=== PATIENT | female | born 1935 | race Hispanic/Latino ===

== ENCOUNTER 2016-10-06 14:26 | Inpatient (IN) | payer MEDICARE, OTHER ==
--- NOTE | 2016-10-06 16:12 | CP.PCM.CON ---
History of Present Illness - History of Present Illness History of Present Illness: Surgery: Dr. Polk CC: rectal prolapse HPI: Patient is a 80 y/o female who presents complaining of her rectum prolapsing every day for the past month. She states with every bowel movement she notices her rectum prolapsing. Patient reports spontaneous reduction of prolapse. She reports significant pain when the rectum prolapses and pain resolves once prolapse reduces. She reports tolerating diet at home but appetite has been poor. She denies blood in stool. She states her last colonoscopy was in 2009 which was patient reported as normal. PMH: Gout, HTN, osteoporosis, arthritis, bronchitis PSH: uterine sling for prolapse, colonoscopy NKDA Review of Systems - Review of Systems All systems: reviewed and no additional remarkable complaints except Review of Systems: unless stated in HPI Past Patient History - Past Social History Smoking Status: Former Smoker - PSYCHIATRIC Hx Substance Use: No Meds Allergies/Adverse Reactions: Allergies Allergy/AdvReac Type Severity Reaction Status Date / Time No Known Allergies Allergy Verified 10/06/16 15:51 Physical Exam - Constitutional Appears: Non-toxic, No Acute Distress - Head Exam Head Exam: ATRAUMATIC, NORMOCEPHALIC - Eye Exam Eye Exam: EOMI, Normal appearance - ENT Exam ENT Exam: Mucous Membranes Moist - Respiratory Exam Respiratory Exam: NORMAL BREATHING PATTERN. absent: Respiratory Distress - Cardiovascular Exam Cardiovascular Exam: REGULAR RHYTHM. absent: Tachycardia - GI/Abdominal Exam GI & Abdominal Exam: Soft. absent: Distended, Guarding, Rebound, Rigid, Tenderness - Rectal Exam Rectal Exam: Hemorrhoids Additional comments: rectal tags, rectum currently reduced. mucoid discharge from anus - Extremities Exam Extremities exam: Positive for: normal inspection - Neurological Exam Neurological exam: Alert, Oriented x3 - Psychiatric Exam Psychiatric exam: Normal Affect, Normal Mood - Skin Skin Exam: Dry, Intact, Normal Color, Warm Results - Vital Signs Recent Vital Signs: Last Vital Signs Temp 97.9 F 10/06/16 14:30 Pulse 94 H 10/06/16 14:30 Resp 20 10/06/16 14:30 BP 117/79 10/06/16 14:30 Pulse Ox 94 L 10/06/16 14:30 Assessment & Plan - Assessment and Plan (Free Text) Assessment: 80 y/o female w/ rectal prolapse, recurrent Plan: -CT abd pelvis w/ po and IV contrast -tentatively plan for OR later this week -needs medical and cardiac clearance -needs GI evaluation, Dr. Davis is GI doctor -ok for diet from surgical standpoint until OR date determined -daily labs -further management per primary team -d/w Dr. Felicitas Ignacio PGY1 - Date & Time Date: 10/06/16 Time: 16:17
[2016-10-06] MEDS ORDERED: Iohexol 240 (50 ml) ONE (16:17)
[2016-10-06 16:18] LABS: BASO # 0.2 K/uL (0.0-0.2); BASO % 1.3 % (0.0-2.0); EOS # 0.4 K/uL (0.0-0.7); EOS % 3.4 % (0.0-4.0); HEMATOCRIT 38.3 % (34.0-47.0); LYMPH # 2.4 K/uL (1.0-4.3); LYMPH % 21.5 % (20.0-40.0); MEAN CELL VOLUME 88.4 fL (81.0-99.0); MEAN CORPUSCULAR HEMOGLOBIN 29.6 pg (27.0-31.0); MEAN CORPUSCULAR HGB CONC 33.5 g/dL (33.0-37.0); MEAN PLATELET VOLUME 6.4 fL (7.2-11.7); MONO # 0.9 K/uL (0.0-0.8); MONO % 7.6 % (0.0-10.0); NRBC % 0.1 % (0.0-2.0); RED CELL DISTRIBUTION WIDTH 13.8 % (11.5-14.5); WHITE BLOOD COUNT 11.3 K/uL (4.8-10.8)
[2016-10-06 16:28] LABS: POTASSIUM 4.1 mmol/L (3.6-5.2)
[2016-10-06 16:30] LABS: BILIRUBIN,TOTAL 0.2 mg/dL (0.2-1.3)
[2016-10-06 16:31] LABS: ALB/GLOB RATIO 1.2 (1.0-2.1); CALCIUM 9.3 mg/dl (8.6-10.4); TOTAL PROTEIN 7.1 g/dL (6.3-8.3)
[2016-10-06 16:43] LABS: TROPONIN I 0.027 ng/mL (0.00-0.120)
--- NOTE | 2016-10-06 17:07 | C.PDOC ---
History Of Present Illness 80 y/o female referred to ED by Devan for evaluation of rectal prolapse; intermittent spontaneously reducing rectal prolapse. Pt denies abdominal pain, fever, chills, vomiting, diarrhea or any other complaints. Time Seen by Provider: 10/06/16 15:40 Chief Complaint (Nursing): Abdominal Pain History Per: Patient History/Exam Limitations: no limitations Onset/Duration Of Symptoms: Days Current Symptoms Are (Timing): Still Present Severity: Mild Reports Recently: Treated By A Physician Recent travel outside of the [place]: No Past Medical History Reviewed: Historical Data, Nursing Documentation, Vital Signs Vital Signs: Last Vital Signs Temp 98.1 F 10/06/16 17:51 Pulse 78 10/06/16 17:51 Resp 18 10/06/16 17:51 BP 132/78 10/06/16 17:51 Pulse Ox 96 10/06/16 17:51 Family History: States: Unknown Family Hx - Social History Hx Alcohol Use: No Hx Substance Use: No - Immunization History Hx Tetanus Toxoid Vaccination: No Hx Influenza Vaccination: No Hx Pneumococcal Vaccination: No Review Of Systems Except As Marked, All Systems Reviewed And Found Negative. Constitutional: Negative for: Fever Gastrointestinal: Negative for: Vomiting, Abdominal Pain, Diarrhea Physical Exam - Physical Exam Appears: Non-toxic, No Acute Distress Skin: Warm, Dry, No Rash Head: Atraumatic, Normacephalic Chest: Symmetrical Cardiovascular: Rhythm Regular, No Murmur Respiratory: Normal Breath Sounds, No Rales, No Rhonchi, No Wheezing Gastrointestinal/Abdominal: Soft, No Tenderness Rectal: Other (>6 cm rectal prolapse) Extremity: Bilateral: Atraumatic Neurological/Psych: Oriented x3, Normal Speech ED Course And Treatment - Laboratory Results Result Diagrams: 10/06/16 16:14 10/06/16 16:14 Lab Interpretation: Normal (bnp/trop neg.) ECG: Interpreted By Dc ECG Rhythm: Sinus Rhythm ECG Interpretation: Normal Rate From EC O2 Sat by Pulse Oximetry: 94 - Radiology CXR: Interpreted by Dc CXR Interpretation: Yes: No Acute Disease Reevaluation Time: 17:23 Reassessment Condition: Unchanged - Physician Consult Information Outcome Of Conversation: 1600: d/w Surgical team for Dr. Magalis ogden to admit. will perform CT Abd/pelvis with PO/IV contrast while pt on Medicine Floor. 1700: d/w Dr. Fitzgerald- [facility] covering Dr. Yessica Ferris's patients'- ok to admit. pending GI consult with Dr Jack Pablo. Medical Decision Making Medical Decision Making: EKG, CXR, labs 1730: rectal prolapse, pending surgical correction and CT Abd/pelvis. Disposition Doctor Will See Patient In The: Hospital Counseled Patient/Family Regarding: Studies Performed, Diagnosis - Disposition Disposition: HOSPITALIZED Disposition Time: 17:25 Condition: GOOD - Clinical Impression Clinical Impression: Rectal prolapse - Scribe Statement The provider has reviewed the documentation as recorded by the Elvie Fang Provider Attestation: All medical record entries made by the Elvie were at my direction and personally dictated by me. I have reviewed the chart and agree that the record accurately reflects my personal performance of the history, physical exam, medical decision making, and the department course for this patient. I have also personally directed, reviewed, and agree with the discharge instructions and disposition.
--- NOTE | 2016-10-06 17:39 | RAD ---
PROCEDURE: CHEST RADIOGRAPH, 1 VIEW HISTORY: SOB COMPARISON: None available. FINDINGS: LUNGS: Clear. PLEURA: No pneumothorax or pleural fluid seen. CARDIOVASCULAR: No radiographic findings to suggest acute or significant cardiovascular disease. OSSEOUS STRUCTURES: No significant abnormalities. VISUALIZED UPPER ABDOMEN: Normal. OTHER FINDINGS: Prominent skin fold. However there are markings beyond the skin folds on the left. If pneumothorax is suspected given the findings and clinical presentation repeat chest x-ray is advised. IMPRESSION: Probably no active disease. Prominent skin fold with pulmonary markings beyond this left lung.
--- NOTE | 2016-10-06 18:10 | CP.PCM.HP ---
<Sourav Link - Last Filed: 10/06/16 17:57> History of Present Illness - History of Present Illness History of Present Illness: This is a 80 yo F with PMH significant for HTN, gout, osteoporosis and arthritis that presented to the ED with a chief complaint of rectal prolapse. Pt states that this started about 1 month and has gotten progressively worse. She states that is is associated with pain. She also reports that it prolapses with a BM and will reduce spontaneously as she goes about her day. She is not aware of any exacerbating factors or what lead to the prolapse. Pt denies constipation, fevers, chills, chest pain, sob, nausea or vomiting. She also denies blood in her stool. Pt was seen by Dr Polk outpatient, who sent her in for surgical repair. PMD: Devan PMH: Gout, HTN, osteoporosis, arthritis, bronchitis PSH: uterine sling for prolapse, colonoscopy Allergies: NKDA FH: denies Sh: denies Tobacco, Etoh or drug use Present on Admission - Present on Admission Any Indicators Present on Admission: No Review of Systems - Constitutional Constitutional: absent: Chills, Fever - Cardiovascular Cardiovascular: absent: Chest Pain, Palpitations - Respiratory Respiratory: absent: Cough, Dyspnea - Gastrointestinal Gastrointestinal: absent: Abdominal Pain, Constipation, Diarrhea, Nausea, Vomiting Additional comments: Pt not currently prolapsed - Genitourinary Genitourinary: Urinary Frequency, Urinary Urgency - Musculoskeletal Musculoskeletal: absent: Muscle Weakness, Stiffness - Integumentary Integumentary: absent: Pruritus, Rash - Neurological Neurological: absent: Numbness, Tingling Past Patient History - Past Social History Smoking Status: Former Smoker - PSYCHIATRIC Hx Substance Use: No Meds Allergies/Adverse Reactions: Allergies Allergy/AdvReac Type Severity Reaction Status Date / Time No Known Allergies Allergy Verified 10/06/16 15:51 Physical Exam - Constitutional Appears: Well, Non-toxic, No Acute Distress - Head Exam Head Exam: ATRAUMATIC, NORMOCEPHALIC - Eye Exam Eye Exam: Normal appearance Pupil Exam: PERRL - ENT Exam ENT Exam: Mucous Membranes Moist - Respiratory Exam Respiratory Exam: Clear to Auscultation Bilateral, NORMAL BREATHING PATTERN - Cardiovascular Exam Cardiovascular Exam: +S1, +S2 - GI/Abdominal Exam GI & Abdominal Exam: Normal Bowel Sounds, Soft - Rectal Exam Rectal Exam: Hemorrhoids Additional comments: rectal tags, rectum currently reduced. mucoid discharge from anus - Extremities Exam Additional comments: Left upper extremity deformity - pt broke left wrist in 2013 - displaced - Neurological Exam Neurological exam: Alert, Oriented x3 - Skin Skin Exam: Dry, Warm Results - Vital Signs Recent Vital Signs: Last Vital Signs Temp 98.1 F 10/06/16 17:51 Pulse 78 10/06/16 17:51 Resp 18 10/06/16 17:51 BP 132/78 10/06/16 17:51 Pulse Ox 96 10/06/16 17:51 - Labs Result Diagrams: 10/06/16 16:14 10/06/16 16:14 Assessment & Plan - Assessment and Plan (Free Text) Assessment: Rectal prolapse - Currently reduced - Surgery consulted (Felicitas) - help appreciated -CT abd pelvis w/ po and IV contrast - f/u results -tentatively plan for OR later this week -needs medical and cardiac clearance -needs GI evaluation, Dr. Davis is GI doctor -ok for diet from surgical standpoint until OR date determined -daily labs Cardio consulted (Bella) - help appreciated - f/u recs GI consulted (Ryan) - help appreciaed - f/U recs Heart healthy diet Colace BID PRN Hx of HTN - restarted home meds - monitor and adjust as necessary Hx of Gout - restart home meds PPX - Lovenox - Pepcid <Yasir Fitzgerald H - Last Filed: 10/07/16 07:35> Results - Vital Signs Recent Vital Signs: Last Vital Signs Temp 98.5 F 10/07/16 00:14 Pulse 79 10/07/16 00:14 Resp 20 10/07/16 00:14 BP 142/84 10/07/16 00:14 Pulse Ox 94 L 10/07/16 00:14 - Labs Result Diagrams: 10/07/16 06:31 10/07/16 06:31 Labs: Laboratory Results - last 24 hr 10/07/16 06:31 WBC 10.1 RBC 4.80 Hgb 13.8 Hct 42.2 MCV 87.9 MCH 28.7 MCHC 32.7 L RDW 14.2 Plt Count 583 H MPV 6.8 L Neut % (Auto) 77.0 H Lymph % (Auto) 16.5 L Wright % (Auto) 3.7 Eos % (Auto) 2.6 Baso % (Auto) 0.2 Neut # 7.8 H Lymph # 1.7 Wright # 0.4 Eos # 0.3 Baso # 0.0 PT 10.9 INR 1.0 APTT 30 Sodium 134 Potassium 3.9 Chloride 94 L Carbon Dioxide 26 Anion Gap 18 BUN 22 H Creatinine 0.7 Est GFR ( Amer) > 60 Est GFR (Non-Af Amer) > 60 Random Glucose 101 Calcium 8.7 Total Bilirubin 0.8 AST 18 ALT 22 Alkaline Phosphatase 85 Total Protein 7.1 Albumin 3.8 Globulin 3.4 Albumin/Globulin Ratio 1.1 Carcinoembryonic Ag 1.3 CA 125 Antigen 14.6 Attending/Attestation - Attestation I have personally seen and examined this patient.: Yes I have fully participated in the care of the patient.: Yes I have reviewed all pertinent clinical information: Yes Notes (Text): Medical Attending: Patient was seen and examined by me. Agree with the above note by the resident. Patient was sent in by surgeon for repair of rectal prolasp. The patient explains this has been going on for quite some time now. From what I understand that it prolapses with a BM and will reduce spontaneously as she goes about her day. Needs EKG, CXRAY, PT, INR, and patient will need cardiology as well as GI evaluation. thank you Yasir Fitzgerald
[2016-10-06] MEDS ORDERED: Enoxaparin 40 mg Syringe ONE (18:29)
--- NOTE | 2016-10-06 18:31 | CT ---
PROCEDURE: CT Abdomen and Pelvis without intravenous contrast HISTORY: hx of rectal prolapse COMPARISON: None. TECHNIQUE: Oral contrast only. Radiation dose: Total exam DLP = 344.73 mGy-cm. This CT exam was performed using one or more of the following dose reduction techniques: Automated exposure control, adjustment of the mA and/or kV according to patient size, and/or use of iterative reconstruction technique. FINDINGS: LOWER THORAX: Unremarkable. LIVER: Unremarkable. No gross lesion or ductal dilatation. GALLBLADDER AND BILE DUCTS: Unremarkable. PANCREAS: Unremarkable. No gross lesion or ductal dilatation. SPLEEN: Unremarkable. ADRENALS: Unremarkable. No mass. KIDNEYS AND URETERS: Unremarkable. No hydronephrosis. No solid mass. Incidental finding(s): Simple cysts left kidney (2) the largest 6.5 cm. Adjacent smaller cyst 4.4 x 4.5 cm. VASCULATURE: Unremarkable. No aortic aneurysm. BOWEL: Thickening of the wall of the rectum likely proctitis. The findings do not extend to the sigmoid colon. No evidence of mechanical obstruction. There is a component of constipation. APPENDIX: Unremarkable. Normal appendix. PERITONEUM: Unremarkable. No free fluid. No free air. LYMPH NODES: Unremarkable. No enlarged lymph nodes. BLADDER: Unremarkable. REPRODUCTIVE: Unremarkable. BONES: Grade 1 anterolisthesis L5-S1. Loss of height L2 vertebral body and T12 vertebral body likely osteopenic/ old compression fractures. OTHER FINDINGS: None. IMPRESSION: Inflammatory changes, thickening of the wall of the rectum. Focal colitis/proctitis. No additional/ more proximal abnormalities in the sigmoid or descending colon. There is no evidence of mechanical obstruction. Prolapse is not appreciated on the current study.
[2016-10-06] MEDS: Enoxaparin 40 mg Syringe SC SCH (18:32)
[2016-10-07 06:42] LABS: BASO % 0.2 % (0.0-2.0); EOS # 0.3 K/uL (0.0-0.7); EOS % 2.6 % (0.0-4.0); HEMATOCRIT 42.2 % (34.0-47.0); LYMPH # 1.7 K/uL (1.0-4.3); LYMPH % 16.5 % (20.0-40.0); MEAN CELL VOLUME 87.9 fL (81.0-99.0); MEAN CORPUSCULAR HEMOGLOBIN 28.7 pg (27.0-31.0); MEAN CORPUSCULAR HGB CONC 32.7 g/dL (33.0-37.0); MEAN PLATELET VOLUME 6.8 fL (7.2-11.7); MONO # 0.4 K/uL (0.0-0.8); MONO % 3.7 % (0.0-10.0); RED CELL DISTRIBUTION WIDTH 14.2 % (11.5-14.5); WHITE BLOOD COUNT 10.1 K/uL (4.8-10.8)
[2016-10-07 06:58] LABS: CHLORIDE 94 mmol/L (98-107)
[2016-10-07 06:59] LABS: POTASSIUM 3.9 mmol/L (3.6-5.2); SODIUM 134 mmol/L (132-148)
[2016-10-07 07:01] LABS: ALB/GLOB RATIO 1.1 (1.0-2.1); AST/SGOT 18 U/L (14-36); BILIRUBIN,TOTAL 0.8 mg/dL (0.2-1.3); CARBON DIOXIDE 26 mmol/L (22-30); GFR AFRICAN-AMERICAN > 60; TOTAL PROTEIN 7.1 g/dL (6.3-8.3)
[2016-10-07 07:02] LABS: ALKALINE PHOSPHATASE 85 U/L (38-126); ALT/SGPT 22 U/L (9-52); BLOOD UREA NITROGEN 22 mg/dL (7-17); CALCIUM 8.7 mg/dl (8.6-10.4); GLUCOSE,RANDOM 101 mg/dL (65-105)
[2016-10-07 07:22] LABS: CARCINOEMBRYONIC ANTIGEN 1.3 ng/mL (0-3.0)
--- NOTE | 2016-10-07 07:58 | CP.PCM.CON ---
<Melquiades Barrera - Last Filed: 10/07/16 09:07> History of Present Illness - History of Present Illness History of Present Illness: Cardiology Note- Dr. Blanco' service Patient is a 80 year old female that was sent to the hospital by Dr. Mejia for surgical repair of a rectal prolapse. She says the prolapse occurs intermittently, then spontaneously resolves. At this time, she has no acute complaints, denies any chest pain, palpitations, dyspnea at rest or on exertion. Denies any cardiac history or family hx of cardiac disease. She says she is compliant with her medication. PMH: Gout, HTN, osteoporosis, arthritis PSH: uterine sling for prolapse, colonoscopy Allergies: NKDA FH: denies Sh: denies tobacco, Etoh or drug use Review of Systems - Constitutional Constitutional: absent: Anorexia, Weakness - Cardiovascular Cardiovascular: absent: Chest Pain, Chest Pain at Rest, Claudication, Irregular Heart Rhythm, Pedal Edema, Syncope - Respiratory Respiratory: absent: Cough, Dyspnea, Stridor, Chest Congestion - Gastrointestinal Gastrointestinal: absent: Abdominal Pain, Change in Stool Character, Dyspepsia, Early Satiety, Nausea - Genitourinary Genitourinary: absent: Dysuria, Flank Pain - Musculoskeletal Musculoskeletal: absent: Atrophy, Radiating Pain into Limb, Tingling - Endocrine Endocrine: absent: Fatigue, Palpitations Past Patient History - Past Medical History & Family History Past Medical History?: Yes - Past Social History Smoking Status: Never Smoked Chewing Tobacco Use: No Cigar Use: No Alcohol: None Drugs: Denies - MUSCULOSKELETAL/RHEUMATOLOGICAL Hx Falls: Yes Hx Fractures: Yes - PSYCHIATRIC Hx Substance Use: No - ANESTHESIA Hx Anesthesia: Yes Hx Anesthesia Reactions: No Meds Allergies/Adverse Reactions: Allergies Allergy/AdvReac Type Severity Reaction Status Date / Time No Known Allergies Allergy Verified 10/06/16 15:51 - Medications Medications: Current Medications Allopurinol (Zyloprim) 100 mg PO DAILY [facility] Amlodipine Besylate (Norvasc) 5 mg PO DAILY [facility] Bisacodyl (Dulcolax) 10 mg PO ONCE ONE Stop: 10/07/16 14:01 Docusate Sodium (Colace) 100 mg PO BID PRN PRN Reason: Constipation Enoxaparin Sodium (Lovenox) 40 mg SC DAILY [facility] Last Admin: 10/06/16 18:32 Dose: 40 mg Famotidine (Pepcid) 20 mg PO DAILY [facility] Last Admin: 10/06/16 18:32 Dose: 20 mg Hydrochlorothiazide (Microzide) 12.5 mg PO DAILY [facility] Losartan Potassium (Cozaar) 100 mg PO DAILY [facility] Pneumococcal Polyvalent Vaccine (Pneumovax 23 Vaccine) 0.5 ml IM .ONCE ONE Stop: 10/09/16 10:01 Polyethylene Glycol/Electrolytes (Golytely) 4,000 ml PO ONCE ONE Stop: 10/07/16 09:01 Physical Exam - Constitutional Appears: Non-toxic, No Acute Distress - Head Exam Head Exam: ATRAUMATIC, NORMAL INSPECTION, NORMOCEPHALIC - Eye Exam Pupil Exam: NORMAL ACCOMODATION, PERRL - ENT Exam ENT Exam: Mucous Membranes Moist - Respiratory Exam Respiratory Exam: Clear to Auscultation Bilateral, NORMAL BREATHING PATTERN. absent: Rales, Rhonchi, Wheezes - Cardiovascular Exam Cardiovascular Exam: REGULAR RHYTHM, +S1, +S2, Systolic Murmur - GI/Abdominal Exam GI & Abdominal Exam: Normal Bowel Sounds. absent: Distended, Firm, Hyperactive Bowel Sounds - Extremities Exam Extremities exam: Positive for: normal inspection. Negative for: pedal edema, tenderness - Neurological Exam Neurological exam: Alert, CN II-XII Intact, Reflexes Normal - Psychiatric Exam Psychiatric exam: Normal Affect - Skin Skin Exam: Dry, Intact, Normal Color, Warm Results - Vital Signs Recent Vital Signs: Last Vital Signs Temp 98.5 F 10/07/16 00:14 Pulse 79 10/07/16 00:14 Resp 20 10/07/16 00:14 BP 142/84 10/07/16 00:14 Pulse Ox 94 L 10/07/16 00:14 - Labs Result Diagrams: 10/07/16 06:31 10/07/16 06:31 Labs: Laboratory Results - last 24 hr 10/07/16 06:31 WBC 10.1 RBC 4.80 Hgb 13.8 Hct 42.2 MCV 87.9 MCH 28.7 MCHC 32.7 L RDW 14.2 Plt Count 583 H MPV 6.8 L Neut % (Auto) 77.0 H Lymph % (Auto) 16.5 L Davis % (Auto) 3.7 Eos % (Auto) 2.6 Baso % (Auto) 0.2 Neut # 7.8 H Lymph # 1.7 Davis # 0.4 Eos # 0.3 Baso # 0.0 PT 10.9 INR 1.0 APTT 30 Sodium 134 Potassium 3.9 Chloride 94 L Carbon Dioxide 26 Anion Gap 18 BUN 22 H Creatinine 0.7 Est GFR ( Amer) > 60 Est GFR (Non-Af Amer) > 60 Random Glucose 101 Calcium 8.7 Total Bilirubin 0.8 AST 18 ALT 22 Alkaline Phosphatase 85 Total Protein 7.1 Albumin 3.8 Globulin 3.4 Albumin/Globulin Ratio 1.1 Carcinoembryonic Ag 1.3 CA 125 Antigen 14.6 Assessment & Plan (1) Rectal prolapse Status: Acute Comment: EKG reviewed, shows normal sinus rhythm with minimum voltage criteria for LVH. Murmur auscultated on exam, will obtain echocardiogram. <Joanna Blanco - Last Filed: 10/07/16 09:25> Meds - Medications Medications: Current Medications Allopurinol (Zyloprim) 100 mg PO DAILY [facility] Amlodipine Besylate (Norvasc) 5 mg PO DAILY [facility] Bisacodyl (Dulcolax) 10 mg PO ONCE ONE Stop: 10/07/16 14:01 Docusate Sodium (Colace) 100 mg PO BID PRN PRN Reason: Constipation Enoxaparin Sodium (Lovenox) 40 mg SC DAILY [facility] Last Admin: 10/06/16 18:32 Dose: 40 mg Famotidine (Pepcid) 20 mg PO DAILY [facility] Last Admin: 10/06/16 18:32 Dose: 20 mg Hydrochlorothiazide (Microzide) 12.5 mg PO DAILY [facility] Losartan Potassium (Cozaar) 100 mg PO DAILY [facility] Pneumococcal Polyvalent Vaccine (Pneumovax 23 Vaccine) 0.5 ml IM .ONCE ONE Stop: 10/09/16 10:01 Results - Vital Signs Recent Vital Signs: Last Vital Signs Temp 98.7 F 10/07/16 08:00 Pulse 70 10/07/16 08:00 Resp 19 10/07/16 08:00 BP 143/92 H 10/07/16 08:00 Pulse Ox 97 10/07/16 08:00 - Labs Result Diagrams: 10/07/16 06:31 10/07/16 06:31 Labs: Laboratory Results - last 24 hr 10/07/16 06:31 WBC 10.1 RBC 4.80 Hgb 13.8 Hct 42.2 MCV 87.9 MCH 28.7 MCHC 32.7 L RDW 14.2 Plt Count 583 H MPV 6.8 L Neut % (Auto) 77.0 H Lymph % (Auto) 16.5 L Davis % (Auto) 3.7 Eos % (Auto) 2.6 Baso % (Auto) 0.2 Neut # 7.8 H Lymph # 1.7 Davis # 0.4 Eos # 0.3 Baso # 0.0 PT 10.9 INR 1.0 APTT 30 Sodium 134 Potassium 3.9 Chloride 94 L Carbon Dioxide 26 Anion Gap 18 BUN 22 H Creatinine 0.7 Est GFR ( Amer) > 60 Est GFR (Non-Af Amer) > 60 Random Glucose 101 Calcium 8.7 Total Bilirubin 0.8 AST 18 ALT 22 Alkaline Phosphatase 85 Total Protein 7.1 Albumin 3.8 Globulin 3.4 Albumin/Globulin Ratio 1.1 Carcinoembryonic Ag 1.3 CA 125 Antigen 14.6 Attending/Attestation - Attestation I have personally seen and examined this patient.: Yes I have fully participated in the care of the patient.: Yes I have reviewed all pertinent clinical information: Yes Notes (Text): 10/07/16 09:24 Pt with no ekg changes, no chest pain, no chf will obtain echo if nl ef pt may proceed with surgery rectal prolapse. I explaind in Japanese to pt as well answered all questions
[2016-10-07] MEDS ORDERED: Peg-Electrolyte Oral Soln 4L (Golytely) PO ONE (09:00)
--- NOTE | 2016-10-07 09:14 | CP.PCM.PN ---
Subjective - Date & Time of Evaluation Date of Evaluation: 10/07/16 Time of Evaluation: 07:10 - Subjective Subjective: Gen Surg: Dr. Polk Pt S&E this AM. Complaining of skin pruritus. Examination of skin revealed urticaria. Pt has no other complaints. +BM. Objective - Vital Signs/Intake and Output Vital Signs (last 24 hours): Temp Pulse Resp BP Pulse Ox 98.7 F 70 19 143/92 H 97 10/07/16 08:00 10/07/16 08:00 10/07/16 08:00 10/07/16 08:00 10/07/16 08:00 Intake and Output: 10/07/16 10/07/16 06:59 18:59 Intake Total 360 Balance 360 - Medications Medications: Current Medications Allopurinol (Zyloprim) 100 mg PO DAILY [facility] Amlodipine Besylate (Norvasc) 5 mg PO DAILY [facility] Bisacodyl (Dulcolax) 10 mg PO ONCE ONE Stop: 10/07/16 14:01 Docusate Sodium (Colace) 100 mg PO BID PRN PRN Reason: Constipation Enoxaparin Sodium (Lovenox) 40 mg SC DAILY [facility] Last Admin: 10/06/16 18:32 Dose: 40 mg Famotidine (Pepcid) 20 mg PO DAILY [facility] Last Admin: 10/06/16 18:32 Dose: 20 mg Hydrochlorothiazide (Microzide) 12.5 mg PO DAILY [facility] Losartan Potassium (Cozaar) 100 mg PO DAILY [facility] Pneumococcal Polyvalent Vaccine (Pneumovax 23 Vaccine) 0.5 ml IM .ONCE ONE Stop: 10/09/16 10:01 - Labs Labs: 10/07/16 06:31 10/07/16 06:31 PT 10.9 SECONDS (9.7-12.2) 10/07/16 06:31 INR 1.0 10/07/16 06:31 APTT 30 SECONDS (21-34) 10/07/16 06:31 - Constitutional Appears: No Acute Distress - Head Exam Head Exam: NORMOCEPHALIC - Eye Exam Eye Exam: Normal appearance - ENT Exam ENT Exam: Mucous Membranes Moist - Respiratory Exam Respiratory Exam: NORMAL BREATHING PATTERN - Cardiovascular Exam Cardiovascular Exam: +S1, +S2 - GI/Abdominal Exam GI & Abdominal Exam: Soft - Neurological Exam Neurological Exam: Alert, Awake, Oriented x3 - Psychiatric Exam Psychiatric exam: Normal Mood - Skin Skin Exam: Dry, Intact, Urticaria, Warm Assessment and Plan - Assessment and Plan (Free Text) Assessment: 80F w/ rectal prolapse which spontaneously reduces -Will plan surgery for /Wednesday, awaiting medical clearance -Benadryl -GI/DVT ppx -Stool softeners -D/w Dr. Polk
[2016-10-07] MEDS: Enoxaparin 40 mg Syringe SC SCH (10:48)
--- NOTE | 2016-10-07 13:37 | PN ---
DATE: 10/07/2016 LOCATION: 369, bed B. This is a 80-year-old female seen for GI consultation on 10/06/16 as requested by the admitting medic al team, reexamined again today due to recurrent rectal bleeding and what appears to be a possible re ctal prolapse with a complaint of abdominal pain with generalized weakness and malaise. The patient is to be prepared for potential colonoscopy at a.m. as discussed with Dr. Polk. It h as to be mentioned that the patient is my private patient. I referred her to Dr. Polk for surgic al reevaluation. Most recent lab results showed normal CBC, but thrombocytosis of 583 with BUN elevated to 22. The patient's cancer markers of CEA and CA-125 reported to be normal. PHYSICAL EXAMINATION: GENERAL: A 80-year-old female, appears to be awake, alert, oriented. VITAL SIGNS: Afebrile with a pulse of 74, respiratory rate 20-22, blood pressure of 136/90. HEENT: Showed pale, dry oral mucoid membrane. Nonicteric sclerae. LUNGS: Few scattered crepitation, decreased air entry at bases. HEART: Positive S1 and S2. ABDOMEN: Soft. Bowel sounds are present with slight generalized tenderness. No mass or organomegal y. No rebound tenderness or guarding. RECTAL: With guaiac positive stool and evidence of possible rectal prolapse, intermittent. NEUROLOGIC: No reported new neurologic deficits, sensory or motor. IMPRESSION: 1. Rectal prolapse. 2. Internal hemorrhoids. 3. Thrombocytosis of unclear etiology. 4. Known history of hypertension, gouty arthritis, bronchitis as well as osteoporosis and peptic ulc er disease. SUGGESTION: 1. Continue current management. 2. The patient is scheduled for colonoscopy at a.m. for reevaluation of her colon prior to her possi ble surgery as requested by Dr. Polk. Tiffany Davis MD cc: 14 TT: 10/07/2016 13:36:48 Confirmation # [id number] Dictation # [id number]
--- NOTE | 2016-10-07 13:53 | CP.PCM.PN ---
<Ingrid Xie - Last Filed: 10/07/16 13:50> Subjective - Date & Time of Evaluation Date of Evaluation: 10/07/16 Time of Evaluation: 13:50 - Subjective Subjective: Internal medicine progress note for Hospitalist Service- Ingrid Xie, PGY-1 Pt S & E at bedside. Pt reports rash over lower body- never had allergies before, itches, whole body hurts. Is currently taking bowel prep. No other complaints. Denies N/V/F/C, SOB, CP, Abdominal pain. Objective - Vital Signs/Intake and Output Vital Signs (last 24 hours): Temp Pulse Resp BP Pulse Ox 98.7 F 70 19 143/92 H 97 10/07/16 08:00 10/07/16 08:00 10/07/16 08:00 10/07/16 08:00 10/07/16 08:00 Intake and Output: 10/07/16 10/07/16 06:59 18:59 Intake Total 360 Balance 360 - Medications Medications: Current Medications Allopurinol (Zyloprim) 100 mg PO DAILY [facility] Last Admin: 10/07/16 10:48 Dose: 100 mg Amlodipine Besylate (Norvasc) 5 mg PO DAILY [facility] Last Admin: 10/07/16 10:48 Dose: 5 mg Bisacodyl (Dulcolax) 10 mg PO ONCE ONE Stop: 10/07/16 14:01 Diphenhydramine HCl (Benadryl) 25 mg IVP Q6H PRN PRN Reason: Itching / Pruritus Docusate Sodium (Colace) 100 mg PO BID PRN PRN Reason: Constipation Last Admin: 10/07/16 10:48 Dose: 100 mg Enoxaparin Sodium (Lovenox) 40 mg SC DAILY [facility] Last Admin: 10/07/16 10:48 Dose: 40 mg Famotidine (Pepcid) 20 mg PO DAILY [facility] Last Admin: 10/07/16 10:48 Dose: 20 mg Hydrochlorothiazide (Microzide) 12.5 mg PO DAILY [facility] Last Admin: 10/07/16 10:48 Dose: 12.5 mg Losartan Potassium (Cozaar) 100 mg PO DAILY [facility] Last Admin: 10/07/16 10:48 Dose: 100 mg Pneumococcal Polyvalent Vaccine (Pneumovax 23 Vaccine) 0.5 ml IM .ONCE ONE Stop: 10/09/16 10:01 - Labs Labs: 10/07/16 06:31 10/07/16 06:31 PT 10.9 SECONDS (9.7-12.2) 10/07/16 06:31 INR 1.0 10/07/16 06:31 APTT 30 SECONDS (21-34) 10/07/16 06:31 - Constitutional Appears: Non-toxic, No Acute Distress - Head Exam Head Exam: ATRAUMATIC, NORMAL INSPECTION, NORMOCEPHALIC - Eye Exam Eye Exam: EOMI, Normal appearance, PERRL Pupil Exam: NORMAL ACCOMODATION, PERRL - ENT Exam ENT Exam: Mucous Membranes Moist, Normal Exam - Neck Exam Neck Exam: Full ROM, Normal Inspection - Respiratory Exam Respiratory Exam: Clear to Ausculation Bilateral, NORMAL BREATHING PATTERN - Cardiovascular Exam Cardiovascular Exam: REGULAR RHYTHM, +S1, +S2 - GI/Abdominal Exam GI & Abdominal Exam: Soft, Normal Bowel Sounds. absent: Distended, Tenderness - Extremities Exam Extremities Exam: Normal Inspection. absent: Pedal Edema, Tenderness - Back Exam Back Exam: Full ROM, NORMAL INSPECTION - Neurological Exam Neurological Exam: Alert, Awake, CN II-XII Intact, Oriented x3 - Psychiatric Exam Psychiatric exam: Normal Affect, Normal Mood - Skin Skin Exam: Dry, Intact, Rash, Urticaria (over B/L anterior and posterior lower extremities, lower abdomen), Warm. absent: Normal Color Assessment and Plan - Assessment and Plan (Free Text) Assessment: Rectal prolapse - Currently reduced -CT abd pelvis w/ po and IV contrast - findings of rectal wall thickening, focal colitis vs. procitis, no prolapse at time of imaging -Pt w/urticaria after CT abdomen w/contrast- likely contrast allergy -Benadryl 25mg Q6H PRN -Solu-medrol 125mg IVP once -Pepcid 20mg IVP once -Allergy updated in EMR Cardio consulted (Bella) - FU Echo, if echo normal, pt will be cleared for surgery EKG NSR CXR neg GI consulted - colonoscopy in AM, bowel prep in progress Colace BID PRN - Surgery consulted (Felicitas) - plan for OR Wednesday, NPO after MN , holding anticoagulation around MN on PT 10.9 INR 1.0 PTT 30 Hx of HTN - restarted home meds - monitor and adjust as necessary Hx of Gout - restart home meds PPX - Lovenox- hold ordered for 10/07 at 2330 - Pepcid Dispo Bowel prep CLD Colonoscopy in AM with GI NPO after MN 10/08 Anticoagulation held after MN 4 Plan for OR Wednesday DW attending <Ani Elizondo V - Last Filed: 10/07/16 14:39> Objective - Vital Signs/Intake and Output Vital Signs (last 24 hours): Temp Pulse Resp BP Pulse Ox 98.7 F 70 19 143/92 H 97 10/07/16 08:00 10/07/16 08:00 10/07/16 08:00 10/07/16 08:00 10/07/16 08:00 Intake and Output: 10/07/16 10/07/16 06:59 18:59 Intake Total 360 Balance 360 - Medications Medications: Current Medications Allopurinol (Zyloprim) 100 mg PO DAILY [facility] Last Admin: 10/07/16 10:48 Dose: 100 mg Amlodipine Besylate (Norvasc) 5 mg PO DAILY [facility] Last Admin: 10/07/16 10:48 Dose: 5 mg Diphenhydramine HCl (Benadryl) 25 mg IVP Q6H PRN PRN Reason: Itching / Pruritus Docusate Sodium (Colace) 100 mg PO BID PRN PRN Reason: Constipation Last Admin: 10/07/16 10:48 Dose: 100 mg Enoxaparin Sodium (Lovenox) 40 mg SC DAILY [facility] Last Admin: 10/07/16 10:48 Dose: 40 mg Famotidine (Pepcid) 20 mg PO DAILY [facility] Last Admin: 10/07/16 10:48 Dose: 20 mg Hydrochlorothiazide (Microzide) 12.5 mg PO DAILY [facility] Last Admin: 10/07/16 10:48 Dose: 12.5 mg Losartan Potassium (Cozaar) 100 mg PO DAILY [facility] Last Admin: 10/07/16 10:48 Dose: 100 mg Pneumococcal Polyvalent Vaccine (Pneumovax 23 Vaccine) 0.5 ml IM .ONCE ONE Stop: 10/09/16 10:01 - Labs Labs: 10/07/16 06:31 10/07/16 06:31 PT 10.9 SECONDS (9.7-12.2) 10/07/16 06:31 INR 1.0 10/07/16 06:31 APTT 30 SECONDS (21-34) 10/07/16 06:31 Attending/Attestation - Attestation I have personally seen and examined this patient.: Yes I have fully participated in the care of the patient.: Yes I have reviewed all pertinent clinical information, including history, physical exam and plan: Yes Notes (Text): Patient seen, examined and case discussed with day-time resident. patient completed echocardiogram this morning. patient seen this afternoon. patient has macular papular rash over the anterior thighs extends to buttock and abdomen. Patient denies history of allergies. Patient reports it started last night. Per review of EMR, patient received contrast for the Ct scan and given Benadryl IV for the associated itchiness. Patient denies feeling short of breathe or her throat closing up. Patient given stat dose of Solumedrol 125mg IV X1, Benadryl 25mg IV X1, and Pepicd 20mg IVX1 in response to allergic reaction for high suspicion for the oral contrast. Patient is pending OR likely for October [address] Polk. Patient to have colonoscopy tomorrow prior to surgery on Wednesday Assessment/Plan Rectal prolapse * Currently reduced * CT abd pelvis w/ po and IV contrast: inflammatory changes, thickening of the wall of the rectum, focal colitis, proctitis. No additional/more proximal abnormalities in the sigmoid or descending colon. There is no evidence of mechanical obstruction. prolapse is not appreciated on current study * Consult (Dr. Blanco) on board-->help appreciated * Consult (Dr. Polk) on board-->help appreciated; plan for OR Wednesday, NPO after MN , holding anticoagulation around MN on * Patient completed echocardiogram to complete cardiac clearance; EKG: NSR * Consult: (Dr. Davis) on board-->patient to undergo colonoscopy in the AM; patient taking the Golytely at bedside Allergic reaction * likely secondary to contrast for CT abdomen/pelvis * Ordered for Bendaryl 25mg IV, Solumedrol 125mg IV and Pepcid 20mg IV; monitor further symptoms * Rash located over anterior thighs, buttocks, and abdomen Gout * Patient is not in acute flare * Allpurinol 100mg PO daily Hypertension * Norvasc 5mg PO daily * HCTX 12.5mg PO daily * Cozaar 100mg PO daily PPX * held DVT ppx for colonoscopy tomorrow * Pepcid 20mg PO daily for GI ppx
[2016-10-07] MEDS ORDERED: Bisacodyl 5mg EC Tab PO ONE ×2 (14:00)
[2016-10-07] MEDS: DiphenhydrAMINE 50 mg/ml Inj IVP PRN (14:28)
--- NOTE | 2016-10-07 15:51 | CARD ---
APPROVED REPORT EXAM: Two-dimensional and M-mode echocardiogram with Doppler and color Doppler. Other Information Quality : GoodRhythm : INDICATION Murmur RISK FACTORS Hypertension 2D DIMENSIONS LVOT Diameter1.6 (1.8-2.4cm) M-Mode DIMENSIONS RVDd1.15 (2.1-3.2cm)Left Atrium (MM)3.33 (2.5-4.0cm) IVSd0.79 (0.7-1.1cm)Aortic Root3.12 (2.2-3.7cm) LVDd5.22 (4.0-5.6cm)Aortic Cusp Exc.1.01 (1.5-2.0cm) PWd0.85 (0.7-1.1cm)FS (%) 28 % LVDs3.74 (2.0-3.8cm)LVEF (%)55 (>50%) Aortic Valve AoV Peak Lfqfbazt740.0cm/sAoV VTI46.1cmAO Peak GR.19mmHg LVOT Peak Xaogikcu277.6cm/sLVOT VTI21.06cmAO Mean GR.11mmHg BLESSING (VMAX)0.37ev1UZK (VTI)0.30zv0UJ P 1/2 Avmy644uo Mitral Valve MV E Dtyyvjxi04.2cm/sMV A Euprvhgg56.8cm/sE/A ratio0.5 TDI E/Lateral E'0.0E/Medial E'0.0 Tricuspid Valve TR Peak Ukbygohn607aa/sTR Peak Gr.17neEcSDFA81zlXb LEFT VENTRICLE The left ventricle is normal size. There is normal left ventricular wall thickness. The left ventricular function is normal. The left ventricular ejection fraction is within the normal range. There is normal LV segmental wall motion. Transmitral Doppler flow pattern is Grade I-abnormal relaxation pattern. RIGHT VENTRICLE The right ventricle is normal size. There is normal right ventricular wall thickness. The right ventricular systolic function is normal. ATRIA The left atrium size is normal. The right atrium size is normal. AORTIC VALVE The aortic valve is moderately thickened. There is trace to mild aortic regurgitation. There is mild to moderate valvular aortic stenosis. MITRAL VALVE The mitral valve is mildly thickened. TRICUSPID VALVE There is mild tricuspid regurgitation. There is mild pulmonary hypertension. GREAT VESSELS The aortic root is normal in size. PERICARDIAL EFFUSION There is a trace loculated anterior pericardial effusion. <Conclusion> The left ventricle is normal size. The left ventricular function is normal. The left ventricular ejection fraction is within the normal range. There is normal LV segmental wall motion. Transmitral Doppler flow pattern is Grade I-abnormal relaxation pattern. There is mild to moderate valvular aortic stenosis. There is trace to mild aortic regurgitation. There is mild tricuspid regurgitation. There is mild pulmonary hypertension.
--- NOTE | 2016-10-07 16:54 | CARD ---
APPROVED REPORT EKG Measurement Heart [id number] <Conclusion> Normal sinus rhythm Minimal voltage criteria for LVH, may be normal variant Borderline ECG
[2016-10-08 06:50] LABS: BASO % 0.3 % (0.0-2.0); EOS % 0.1 % (0.0-4.0); HEMATOCRIT 39.6 % (34.0-47.0); LYMPH # 1.3 K/uL (1.0-4.3); LYMPH % 20.3 % (20.0-40.0); MEAN CORPUSCULAR HEMOGLOBIN 28.2 pg (27.0-31.0); MEAN CORPUSCULAR HGB CONC 32.4 g/dL (33.0-37.0); MEAN PLATELET VOLUME 6.9 fL (7.2-11.7); MONO # 0.2 K/uL (0.0-0.8); MONO % 3.8 % (0.0-10.0); RED CELL DISTRIBUTION WIDTH 14.1 % (11.5-14.5); WHITE BLOOD COUNT 6.3 K/uL (4.8-10.8)
[2016-10-08 06:53] LABS: CHLORIDE 97 mmol/L (98-107); POTASSIUM 3.2 mmol/L (3.6-5.2); SODIUM 138 mmol/L (132-148)
[2016-10-08 06:55] LABS: ALKALINE PHOSPHATASE 72 U/L (38-126); AST/SGOT 20 U/L (14-36); BILIRUBIN,TOTAL 0.6 mg/dL (0.2-1.3); CARBON DIOXIDE 27 mmol/L (22-30); GFR AFRICAN-AMERICAN > 60
[2016-10-08 06:56] LABS: ALB/GLOB RATIO 1.2 (1.0-2.1); ALT/SGPT 20 U/L (9-52); BLOOD UREA NITROGEN 13 mg/dL (7-17); CALCIUM 8.8 mg/dl (8.6-10.4); GLUCOSE,RANDOM 114 mg/dL (65-105)
--- NOTE | 2016-10-08 07:52 | CP.PCM.PN ---
<Jaylyn Schmitt - Last Filed: 10/08/16 08:47> Subjective - Date & Time of Evaluation Date of Evaluation: 10/08/16 Time of Evaluation: 07:25 - Subjective Subjective: Cardiology Progress Note for Dr. Blanco Patient seen and examined at bedside. There were no acute overnight events. She is scheduled for colonoscopy today. She denies having any pain, CP, SOB, n/v, numbness or tingling. She does report having some diarrhea. It is noted that patient was being prepped for colonoscopy. Objective - Vital Signs/Intake and Output Vital Signs (last 24 hours): Temp Pulse Resp BP Pulse Ox 98 F 86 20 120/71 97 10/08/16 02:00 10/08/16 02:00 10/08/16 02:00 10/08/16 02:00 10/08/16 02:00 Intake and Output: 10/08/16 10/08/16 06:59 18:59 Intake Total 0 Balance 0 - Medications Medications: Current Medications Allopurinol (Zyloprim) 100 mg PO DAILY [facility] Last Admin: 10/07/16 10:48 Dose: 100 mg Amlodipine Besylate (Norvasc) 5 mg PO DAILY [facility] Last Admin: 10/07/16 10:48 Dose: 5 mg Diphenhydramine HCl (Benadryl) 25 mg IVP Q6H PRN PRN Reason: Itching / Pruritus Last Admin: 10/07/16 14:28 Dose: 25 mg Docusate Sodium (Colace) 100 mg PO BID PRN PRN Reason: Constipation Last Admin: 10/07/16 10:48 Dose: 100 mg Famotidine (Pepcid) 20 mg PO DAILY [facility] Last Admin: 10/07/16 10:48 Dose: 20 mg Hydrochlorothiazide (Microzide) 12.5 mg PO DAILY [facility] Last Admin: 10/07/16 10:48 Dose: 12.5 mg Losartan Potassium (Cozaar) 100 mg PO DAILY [facility] Last Admin: 10/07/16 10:48 Dose: 100 mg Pneumococcal Polyvalent Vaccine (Pneumovax 23 Vaccine) 0.5 ml IM .ONCE ONE Stop: 10/09/16 10:01 Potassium Chloride (K-Dur 20 Meq Er Tab) 40 meq PO ONCE ONE Stop: 10/08/16 16:01 - Labs Labs: 10/08/16 06:25 10/08/16 06:25 PT 10.9 SECONDS (9.7-12.2) 10/07/16 06:31 INR 1.0 10/07/16 06:31 APTT 30 SECONDS (21-34) 10/07/16 06:31 - Constitutional Appears: No Acute Distress - Head Exam Head Exam: ATRAUMATIC, NORMAL INSPECTION, NORMOCEPHALIC - Eye Exam Eye Exam: Normal appearance Pupil Exam: NORMAL ACCOMODATION - ENT Exam ENT Exam: Mucous Membranes Moist - Neck Exam Neck Exam: Normal Inspection - Cardiovascular Exam Cardiovascular Exam: REGULAR RHYTHM, +S1, +S2. absent: Gallop, Rubs, Murmur - GI/Abdominal Exam GI & Abdominal Exam: Soft, Normal Bowel Sounds. absent: Guarding, Rigid, Tenderness - Extremities Exam Extremities Exam: Full ROM, Normal Capillary Refill. absent: Calf Tenderness, Pedal Edema, Tenderness - Neurological Exam Neurological Exam: Alert, Awake - Skin Skin Exam: Dry, Normal Color, Warm Assessment and Plan - Assessment and Plan (Free Text) Assessment: This is a 80Y [place] Female with PMH of HTN and gout admitted for 1) Rectal prolapse 2) Hx of HTN 3) Hx of gout Plan: - Echo showed EF of 55% with normal LV function, mild to moderate aortic sclerosis and mild pulmonary HTN - Revised Cardiac Risk Index is 0 which correlates with 0.4% risk of cardiac event after surgery - Patient is able to proceed with surgery (benefits outweigh risks) - Continue HCTZ, Norvasc and Cozaar GI ppx: Pepcid DVT ppx: SCDs Case seen, reviewed and discussed with Dr. Bella Schmitt PGY1 <Joanna Blanco A - Last Filed: 10/08/16 09:30> Objective - Vital Signs/Intake and Output Vital Signs (last 24 hours): Temp Pulse Resp BP Pulse Ox 98 F 86 20 120/71 97 10/08/16 02:00 10/08/16 02:00 10/08/16 02:00 10/08/16 02:00 10/08/16 02:00 Intake and Output: 10/08/16 10/08/16 06:59 18:59 Intake Total 0 Balance 0 - Medications Medications: Current Medications Allopurinol (Zyloprim) 100 mg PO DAILY [facility] Last Admin: 10/08/16 09:18 Dose: Not Given Amlodipine Besylate (Norvasc) 5 mg PO DAILY [facility] Last Admin: 10/08/16 09:18 Dose: Not Given Diphenhydramine HCl (Benadryl) 25 mg IVP Q6H PRN PRN Reason: Itching / Pruritus Last Admin: 10/07/16 14:28 Dose: 25 mg Docusate Sodium (Colace) 100 mg PO BID PRN PRN Reason: Constipation Last Admin: 10/07/16 10:48 Dose: 100 mg Famotidine (Pepcid) 20 mg PO DAILY [facility] Last Admin: 10/08/16 09:18 Dose: Not Given Hydrochlorothiazide (Microzide) 12.5 mg PO DAILY [facility] Last Admin: 10/08/16 09:18 Dose: Not Given Losartan Potassium (Cozaar) 100 mg PO DAILY [facility] Last Admin: 10/07/16 10:48 Dose: 100 mg Pneumococcal Polyvalent Vaccine (Pneumovax 23 Vaccine) 0.5 ml IM .ONCE ONE Stop: 10/09/16 10:01 Potassium Chloride (K-Dur 20 Meq Er Tab) 40 meq PO ONCE ONE Stop: 10/08/16 16:01 - Labs Labs: 10/08/16 06:25 10/08/16 06:25 PT 10.9 SECONDS (9.7-12.2) 10/07/16 06:31 INR 1.0 10/07/16 06:31 APTT 30 SECONDS (21-34) 10/07/16 06:31 Attending/Attestation - Attestation I have personally seen and examined this patient.: Yes I have fully participated in the care of the patient.: Yes I have reviewed all pertinent clinical information, including history, physical exam and plan: Yes Notes (Text): 10/08/16 09:29 Pt for colonoscopy today NPO in good spirits
--- NOTE | 2016-10-08 10:58 | CP.PCM.PN ---
<Ingrid Xie - Last Filed: 10/08/16 10:56> Subjective - Date & Time of Evaluation Date of Evaluation: 10/08/16 Time of Evaluation: 07:10 - Subjective Subjective: Internal medicine progress note for Hospitalist Service- Ingrid Xie, PGY-1 Pt S & E at bedside. Pt reports itchy rash resolved, no problems overnight, tolerated bowel prep. Denies N/V/F/C, SOB, CP, abdominal pain, ambulating, slept ok. Objective - Vital Signs/Intake and Output Vital Signs (last 24 hours): Temp Pulse Resp BP Pulse Ox 98.2 F 73 20 115/71 96 10/08/16 07:00 10/08/16 07:00 10/08/16 07:00 10/08/16 07:00 10/08/16 07:00 Intake and Output: 10/08/16 10/08/16 06:59 18:59 Intake Total 0 Balance 0 - Medications Medications: Current Medications Allopurinol (Zyloprim) 100 mg PO DAILY [facility] Last Admin: 10/08/16 09:18 Dose: Not Given Amlodipine Besylate (Norvasc) 5 mg PO DAILY [facility] Last Admin: 10/08/16 09:18 Dose: Not Given Diphenhydramine HCl (Benadryl) 25 mg IVP Q6H PRN PRN Reason: Itching / Pruritus Last Admin: 10/07/16 14:28 Dose: 25 mg Docusate Sodium (Colace) 100 mg PO BID PRN PRN Reason: Constipation Last Admin: 10/07/16 10:48 Dose: 100 mg Famotidine (Pepcid) 20 mg PO DAILY [facility] Last Admin: 10/08/16 09:18 Dose: Not Given Hydrochlorothiazide (Microzide) 12.5 mg PO DAILY [facility] Last Admin: 10/08/16 09:18 Dose: Not Given Losartan Potassium (Cozaar) 100 mg PO DAILY [facility] Last Admin: 10/07/16 10:48 Dose: 100 mg Pneumococcal Polyvalent Vaccine (Pneumovax 23 Vaccine) 0.5 ml IM .ONCE ONE Stop: 10/09/16 10:01 Potassium Chloride (K-Dur 20 Meq Er Tab) 40 meq PO ONCE ONE Stop: 10/08/16 16:01 - Labs Labs: 10/08/16 06:25 10/08/16 06:25 PT 10.9 SECONDS (9.7-12.2) 10/07/16 06:31 INR 1.0 10/07/16 06:31 APTT 30 SECONDS (21-34) 10/07/16 06:31 - Constitutional Appears: Non-toxic, No Acute Distress - Head Exam Head Exam: ATRAUMATIC, NORMAL INSPECTION, NORMOCEPHALIC - Eye Exam Eye Exam: EOMI, Normal appearance, PERRL Pupil Exam: NORMAL ACCOMODATION, PERRL - ENT Exam ENT Exam: Mucous Membranes Moist, Normal Exam - Neck Exam Neck Exam: Full ROM, Normal Inspection - Respiratory Exam Respiratory Exam: Clear to Ausculation Bilateral, NORMAL BREATHING PATTERN. absent: Rales, Rhonchi, Wheezes, Respiratory Distress - Cardiovascular Exam Cardiovascular Exam: REGULAR RHYTHM, +S1, +S2 - GI/Abdominal Exam GI & Abdominal Exam: Soft, Normal Bowel Sounds. absent: Tenderness - Extremities Exam Extremities Exam: Full ROM. absent: Normal Inspection, Pedal Edema, Tenderness Additional comments: LUE wrist deformity - Back Exam Back Exam: NORMAL INSPECTION - Neurological Exam Neurological Exam: Alert, Awake, CN II-XII Intact, Oriented x3 - Psychiatric Exam Psychiatric exam: Normal Affect, Normal Mood - Skin Skin Exam: Dry, Intact, Normal Color, Urticaria (minimal, resolving over B/L thighs/buttocks), Warm Assessment and Plan - Assessment and Plan (Free Text) Assessment: Rectal prolapse - Currently reduced -CT abd pelvis w/ po and IV contrast - findings of rectal wall thickening, focal colitis vs. procitis, no prolapse at time of imaging -Urticaria resolved Cardio consulted (Bella) - Echo w/findings of echo -EF >55%, mild - mod valvular , trace to mild AR, mild TR, mild pulmonary HTN - pt cleared for surgery EKG NSR CXR neg GI consulted - colonoscopy today Colace BID PRN - Surgery consulted (Ferriday) - plan for OR Wednesday, NPO after MN , holding anticoagulation around MN on PT 10.9 INR 1.0 PTT 30 Hx of HTN - restarted home meds - monitor and adjust as necessary Hx of Gout - restart home meds PPX - Lovenox- hold ordered for 10/07 at 2330 - Pepcid Dispo Colonoscopy today NPO after MN 4/6 Anticoagulation held after MN 46 Plan for OR 10/09 DW attending <Yasir Fitzgerald H - Last Filed: 10/08/16 15:17> Objective - Vital Signs/Intake and Output Vital Signs (last 24 hours): Temp Pulse Resp BP Pulse Ox 98.2 F 69 18 162/83 H 95 10/08/16 14:17 10/08/16 14:55 10/08/16 14:17 10/08/16 14:17 10/08/16 14:17 Intake and Output: 10/08/16 10/08/16 06:59 18:59 Intake Total 0 300 Balance 0 300 - Medications Medications: Current Medications Allopurinol (Zyloprim) 100 mg PO DAILY [facility] Last Admin: 10/08/16 14:15 Dose: 100 mg Amlodipine Besylate (Norvasc) 5 mg PO DAILY [facility] Last Admin: 10/08/16 14:15 Dose: 5 mg Diphenhydramine HCl (Benadryl) 25 mg IVP Q6H PRN PRN Reason: Itching / Pruritus Last Admin: 10/07/16 14:28 Dose: 25 mg Docusate Sodium (Colace) 100 mg PO BID PRN PRN Reason: Constipation Last Admin: 10/07/16 10:48 Dose: 100 mg Famotidine (Pepcid) 20 mg PO DAILY [facility] Last Admin: 10/08/16 14:15 Dose: 20 mg Hydrochlorothiazide (Microzide) 12.5 mg PO DAILY [facility] Last Admin: 10/08/16 14:15 Dose: 12.5 mg Sodium Chloride (Sodium Chloride 0.9%) 1,000 mls @ 80 mls/hr IV .[id number] [facility] Last Admin: 10/08/16 13:20 Dose: Not Given Losartan Potassium (Cozaar) 100 mg PO DAILY [facility] Last Admin: 10/08/16 11:24 Dose: 100 mg Pneumococcal Polyvalent Vaccine (Pneumovax 23 Vaccine) 0.5 ml IM .ONCE ONE Stop: 10/09/16 10:01 Potassium Chloride (K-Dur 20 Meq Er Tab) 40 meq PO ONCE ONE Stop: 10/08/16 16:01 - Labs Labs: 10/08/16 06:25 10/08/16 06:25 PT 10.9 SECONDS (9.7-12.2) 10/07/16 06:31 INR 1.0 10/07/16 06:31 APTT 30 SECONDS (21-34) 10/07/16 06:31 Attending/Attestation - Attestation I have personally seen and examined this patient.: Yes I have fully participated in the care of the patient.: Yes I have reviewed all pertinent clinical information, including history, physical exam and plan: Yes Notes (Text): Medical attending: Patient was seen and examined by me, agree with the above note by medical operations supervisor. currently at this time the patient is pending GI evaluation with a colonoscopy. When we saw her she was actively walking about the hallways of the third floor. She has been evaluated by cardiology and had echo done and has been cleared by cardiology thank you Yasir Fitzgerald
--- NOTE | 2016-10-08 11:28 | CP.PCM.PN ---
Subjective - Date & Time of Evaluation Date of Evaluation: 10/08/16 Time of Evaluation: 11:25 - Subjective Subjective: Surgery: Dr. Polk Patient doing well today. Complains for rectum prolapsing however spontaneously reduces. Patient has been NPO for colonoscopy today. Objective - Vital Signs/Intake and Output Vital Signs (last 24 hours): Temp Pulse Resp BP Pulse Ox 98.2 F 73 20 115/71 96 10/08/16 07:00 10/08/16 07:00 10/08/16 07:00 10/08/16 07:00 10/08/16 07:00 Intake and Output: 10/08/16 10/08/16 06:59 18:59 Intake Total 0 Balance 0 - Medications Medications: Current Medications Allopurinol (Zyloprim) 100 mg PO DAILY [facility] Last Admin: 10/08/16 09:18 Dose: Not Given Amlodipine Besylate (Norvasc) 5 mg PO DAILY [facility] Last Admin: 10/08/16 09:18 Dose: Not Given Diphenhydramine HCl (Benadryl) 25 mg IVP Q6H PRN PRN Reason: Itching / Pruritus Last Admin: 10/07/16 14:28 Dose: 25 mg Docusate Sodium (Colace) 100 mg PO BID PRN PRN Reason: Constipation Last Admin: 10/07/16 10:48 Dose: 100 mg Famotidine (Pepcid) 20 mg PO DAILY [facility] Last Admin: 10/08/16 09:18 Dose: Not Given Hydrochlorothiazide (Microzide) 12.5 mg PO DAILY [facility] Last Admin: 10/08/16 09:18 Dose: Not Given Losartan Potassium (Cozaar) 100 mg PO DAILY [facility] Last Admin: 10/08/16 11:24 Dose: 100 mg Pneumococcal Polyvalent Vaccine (Pneumovax 23 Vaccine) 0.5 ml IM .ONCE ONE Stop: 10/09/16 10:01 Potassium Chloride (K-Dur 20 Meq Er Tab) 40 meq PO ONCE ONE Stop: 10/08/16 16:01 - Labs Labs: 10/08/16 06:25 10/08/16 06:25 PT 10.9 SECONDS (9.7-12.2) 10/07/16 06:31 INR 1.0 10/07/16 06:31 APTT 30 SECONDS (21-34) 10/07/16 06:31 - Constitutional Appears: Non-toxic, No Acute Distress - Head Exam Head Exam: ATRAUMATIC, NORMOCEPHALIC - Eye Exam Eye Exam: EOMI, Normal appearance - ENT Exam ENT Exam: Mucous Membranes Moist - Respiratory Exam Respiratory Exam: NORMAL BREATHING PATTERN. absent: Respiratory Distress - Cardiovascular Exam Cardiovascular Exam: REGULAR RHYTHM. absent: Tachycardia - GI/Abdominal Exam GI & Abdominal Exam: Soft. absent: Distended, Guarding, Tenderness Assessment and Plan - Assessment and Plan (Free Text) Assessment: 80 y/o female w/ recurring rectal prolapse Plan: -ok for CLD diet tonight -NPO past midnight -scheduled for OR tomorrow afternoon -type and cross for 2 units to be on hold for OR -am labs -f/u cardio recs -d/w Dr. Felicitas Ignacio PGY1
[2016-10-08] MEDS ORDERED: Propofol 10 mg/ml Inj (20 ML) ONE (12:35)
[2016-10-08] MEDS ORDERED: Lactated Ringer's 500 ML IV ONE ×3 (12:46)
[2016-10-08] MEDS: Sodium Chloride 0.9% 1,000 ML IV SCH (13:20)
[2016-10-08] MEDS ORDERED: Potassium Chloride 20 mEq ER Tab PO ONE (16:00)
[2016-10-09] MEDS: Sodium Chloride 0.9% 1,000 ML IV SCH ×2 (01:30→03:07)
[2016-10-09 08:00] LABS: BASO # 0.1 K/uL (0.0-0.2); BASO % 0.8 % (0.0-2.0); EOS # 0.7 K/uL (0.0-0.7); EOS % 8.3 % (0.0-4.0); LYMPH # 2.5 K/uL (1.0-4.3); LYMPH % 29.3 % (20.0-40.0); MEAN CELL VOLUME 88.1 fL (81.0-99.0); MEAN CORPUSCULAR HEMOGLOBIN 29.4 pg (27.0-31.0); MEAN CORPUSCULAR HGB CONC 33.4 g/dL (33.0-37.0); MONO # 0.6 K/uL (0.0-0.8); MONO % 7.6 % (0.0-10.0); RED CELL DISTRIBUTION WIDTH 14.2 % (11.5-14.5); WHITE BLOOD COUNT 8.4 K/uL (4.8-10.8)
[2016-10-09] MEDS ORDERED: Potassium Chloride 20 mEq 100 ML IVPB ONE (08:06)
[2016-10-09] MEDS ORDERED: Lactated Ringer's 1,000 ML IV SCH (08:15)
[2016-10-09 08:19] LABS: BILIRUBIN,TOTAL 0.4 mg/dL (0.2-1.3); BLOOD UREA NITROGEN 12 mg/dL (7-17); CALCIUM 9.2 mg/dl (8.6-10.4); CARBON DIOXIDE 27 mmol/L (22-30); GFR AFRICAN-AMERICAN > 60; GLUCOSE,RANDOM 89 mg/dL (65-105); TOTAL PROTEIN 6.9 g/dL (6.3-8.3)
--- NOTE | 2016-10-09 09:06 | CP.PCM.PN ---
<Jaylyn Schmitt - Last Filed: 10/09/16 09:03> Subjective - Date & Time of Evaluation Date of Evaluation: 10/09/16 Time of Evaluation: 08:00 - Subjective Subjective: Cardiology Progress Note for Dr. Blanco Patient seen and examined at bedside. There were no acute overnight events as per nursing. The patient will have surgical repair of her rectal prolapse in the early afternoon. She is NPO at this time. She reports having some gas today and is nervous about her surgery. She denies having CP, SOB, n/v/d, numbness/ tingling. Objective - Vital Signs/Intake and Output Vital Signs (last 24 hours): Temp Pulse Resp BP Pulse Ox 98.3 F 68 18 153/96 H 95 10/09/16 07:00 10/09/16 07:00 10/09/16 07:00 10/09/16 07:00 10/09/16 07:00 Intake and Output: 10/09/16 10/09/16 06:59 18:59 Intake Total 1630 Balance 1630 - Medications Medications: Current Medications Allopurinol (Zyloprim) 100 mg PO DAILY [facility] Last Admin: 10/08/16 14:15 Dose: 100 mg Amlodipine Besylate (Norvasc) 5 mg PO DAILY [facility] Last Admin: 10/08/16 14:15 Dose: 5 mg Diphenhydramine HCl (Benadryl) 25 mg IVP Q6H PRN PRN Reason: Itching / Pruritus Last Admin: 10/07/16 14:28 Dose: 25 mg Docusate Sodium (Colace) 100 mg PO BID PRN PRN Reason: Constipation Last Admin: 10/07/16 10:48 Dose: 100 mg Famotidine (Pepcid) 20 mg PO DAILY [facility] Last Admin: 10/08/16 14:15 Dose: 20 mg Hydrochlorothiazide (Microzide) 12.5 mg PO DAILY [facility] Last Admin: 10/08/16 14:15 Dose: 12.5 mg Lactated Ringer's (Lactated Ringer's) 1,000 mls @ 100 mls/hr IV .Q10H [facility] Last Admin: 10/09/16 08:54 Dose: 100 mls/hr Potassium Chloride (Potassium Chloride 20 Meq/100 Ml) 100 mls @ 50 mls/hr IVPB ONCE ONE Stop: 10/09/16 10:05 Last Admin: 10/09/16 08:53 Dose: 50 mls/hr Losartan Potassium (Cozaar) 100 mg PO DAILY [facility] Last Admin: 10/08/16 11:24 Dose: 100 mg Pneumococcal Polyvalent Vaccine (Pneumovax 23 Vaccine) 0.5 ml IM .ONCE ONE Stop: 10/09/16 10:01 - Labs Labs: 10/09/16 07:51 10/09/16 07:51 PT 10.9 SECONDS (9.7-12.2) 10/07/16 06:31 INR 1.0 10/07/16 06:31 APTT 30 SECONDS (21-34) 10/07/16 06:31 - Constitutional Appears: No Acute Distress - Head Exam Head Exam: ATRAUMATIC, NORMAL INSPECTION, NORMOCEPHALIC - Eye Exam Eye Exam: Normal appearance Pupil Exam: NORMAL ACCOMODATION - ENT Exam ENT Exam: Mucous Membranes Moist - Respiratory Exam Respiratory Exam: Clear to Ausculation Bilateral, NORMAL BREATHING PATTERN. absent: Rales, Rhonchi, Wheezes - Cardiovascular Exam Cardiovascular Exam: REGULAR RHYTHM, +S1, +S2. absent: Gallop, Rubs, Murmur - GI/Abdominal Exam GI & Abdominal Exam: Soft, Normal Bowel Sounds. absent: Rigid, Tenderness, Mass , Rebound - Extremities Exam Extremities Exam: Normal Inspection. absent: Calf Tenderness, Pedal Edema - Neurological Exam Neurological Exam: Alert, Awake, CN II-XII Intact, Oriented x3 - Psychiatric Exam Psychiatric exam: Normal Affect, Normal Mood - Skin Skin Exam: Dry, Intact, Normal Color, Warm Assessment and Plan - Assessment and Plan (Free Text) Assessment: This is a 80Y [place] Female with PMH of HTN and gout admitted for 1) Rectal prolapse 2) HTN 3) Hx of gout Plan: - Patient is able to proceed with surgery today (benefits outweigh risks) - Continue Cozaar, HCTZ and Norvasc GI ppx: Pepcid DVT ppx: SCDs Case seen, reviewed and discussed with Dr. Bella Schmitt PGY1 <Joanna Blanco - Last Filed: 11/16/16 11:10> Objective - Vital Signs/Intake and Output Vital Signs (last 24 hours): Temp Pulse Resp BP Pulse Ox 98.3 F 104 H 20 115/84 93 L 10/12/16 07:33 10/12/16 11:37 10/12/16 07:33 10/12/16 11:37 10/12/16 11:37 - Labs Labs: 10/12/16 07:10 10/12/16 07:10 PT 10.9 SECONDS (9.7-12.2) 10/07/16 06:31 INR 1.0 10/07/16 06:31 APTT 30 SECONDS (21-34) 10/07/16 06:31 Attending/Attestation - Attestation I have personally seen and examined this patient.: Yes I have fully participated in the care of the patient.: Yes I have reviewed all pertinent clinical information, including history, physical exam and plan: Yes Notes (Text): 11/16/16 11:10 Pt nervous continue bp meds
--- NOTE | 2016-10-09 09:11 | CON ---
DATE: 10/06/2016 I was called for GI consultation by the admitting medical team as well as Dr. Polk, the surgical endoscopist on the case. The patient is seen and fully examined on 10/06/2016. The entire chart is re viewed, including but not limited to, the most recent lab and radiology study results, current and pr evious medication lists, current and previous medical events, allergy to medication list. All the av ailable past medical history was reviewed also. Case discussed with the staff on the floor at length as well as the patient's family as outpatient. This is a 80-year-old female, seen in my office a few days ago for followup office visit with a compl aint of rectal pain, rectal bleeding, and what appeared to be for the patient and the family as a rec basil mass. At that time, it was felt that the patient has evidence of rectal prolapse in my office du ring followup physical examination, for which the patient was referred to Dr. Polk as outpatient for potential surgery. No reported hematemesis, chest pain, shortness of breath, fever or chills recently. PAST MEDICAL HISTORY: Including, but not limited to: 1. Peptic ulcer disease. 2. Gouty arthritis. 3. Bronchitis. 4. Osteoporosis. 5. The patient also had history of uterine prolapse a few years ago. ALLERGY TO MEDICATION: Unknown. CURRENT MEDICATIONS: Lists were reviewed. FAMILY HISTORY: Unclear and unknown. SOCIAL HISTORY: No known history of cigarette smoking or alcohol intake. After being admitted to the hospital, the patient was found to have leukocytosis of 11.3 with thrombo cytopenia of 517, increased BUN to 27, but normal creatinine. White blood cells reported to be 10.1 with normal hemoglobin and hematocrit subsequently. PHYSICAL EXAMINATION: GENERAL: A 80-year-old female, awake, alert, oriented. VITAL SIGNS: Afebrile with pulse of 82, respiratory rate 20-22, blood pressure 138/76. HEENT: Showed dry oral mucoid membrane, nonicteric sclerae. LYMPH NODES: No lymphadenitis or lymphadenopathy. LUNGS: Few scattered crepitation with decreased air entry at bases. HEART: Positive S1 and S2. ABDOMEN: Soft with mild generalized tenderness, especially the lower abdomen. No mass or organomega ly. No rebound tenderness or guarding. RECTAL: With evidence of internal hemorrhoids and evidence of rectal prolapse associated with tender ness and guaiac positive stool. EXTREMITIES: Without significant clubbing, cyanosis or edema. NEUROLOGIC: No new reported focal neurological deficits, sensory or motor. IMPRESSION: 1. Rectal prolapse. 2. Multiple past medical history including, but not limited to, hypertension, gouty arthritis, osteo porosis, peptic ulcer disease as well as recurrent bronchitis before. SUGGESTION: 1. Agree with your plan. 2. Peripheral hyperalimentation. 3. Flagyl IV. 4. Proton pump inhibitors. 5. Cancer markers. 6. Further recommendations to follow. Thank you for letting me participate in your patient's case management. Tiffany Davis MD cc: 14 TT: 10/09/2016 09:10:00 Confirmation # [id number] Dictation # [id number]
[2016-10-09 09:17] LABS: CHLORIDE 98 mmol/L (98-107); POTASSIUM 3.9 mmol/L (3.6-5.2); SODIUM 139 mmol/L (132-148)
[2016-10-09 09:20] LABS: ALKALINE PHOSPHATASE 78 U/L (38-126); ALT/SGPT 24 U/L (9-52); AST/SGOT 25 U/L (14-36)
[2016-10-09 09:27] LABS: ALB/GLOB RATIO 1.2 (1.0-2.1)
[2016-10-09] MEDS ORDERED: Pneumococcal 23-Valent Vaccine IM ONE (10:00)
--- NOTE | 2016-10-09 10:38 | CP.PCM.PN ---
<Ingrid Xie - Last Filed: 10/09/16 14:58> Subjective - Date & Time of Evaluation Date of Evaluation: 10/09/16 Time of Evaluation: 07:20 - Subjective Subjective: Internal medicine progress note for Hospitalist service- Ingrid Xie, PGY-1 Pt S & E at bedside Pt resting comfortably in bed, reports anxiety regarding surgery this afternoon. No acute events overnight per nursing. Denies N/V/F/C, SOB, CP, abdominal pain- states rash is resolved, no longer itchy. Objective - Vital Signs/Intake and Output Vital Signs (last 24 hours): Temp Pulse Resp BP Pulse Ox 98.3 F 68 18 153/96 H 95 10/09/16 07:00 10/09/16 07:00 10/09/16 07:00 10/09/16 07:00 10/09/16 07:00 Intake and Output: 10/09/16 10/09/16 06:59 18:59 Intake Total 1630 Balance 1630 - Medications Medications: Current Medications Allopurinol (Zyloprim) 100 mg PO DAILY [facility] Last Admin: 10/09/16 09:15 Dose: Not Given Amlodipine Besylate (Norvasc) 5 mg PO DAILY [facility] Last Admin: 10/09/16 09:20 Dose: Not Given Diphenhydramine HCl (Benadryl) 25 mg IVP Q6H PRN PRN Reason: Itching / Pruritus Last Admin: 10/07/16 14:28 Dose: 25 mg Docusate Sodium (Colace) 100 mg PO BID PRN PRN Reason: Constipation Last Admin: 10/07/16 10:48 Dose: 100 mg Famotidine (Pepcid) 20 mg PO DAILY [facility] Last Admin: 10/09/16 09:14 Dose: Not Given Hydrochlorothiazide (Microzide) 12.5 mg PO DAILY [facility] Last Admin: 10/09/16 09:14 Dose: Not Given Lactated Ringer's (Lactated Ringer's) 1,000 mls @ 100 mls/hr IV .Q10H [facility] Last Admin: 10/09/16 08:54 Dose: 100 mls/hr Losartan Potassium (Cozaar) 100 mg PO DAILY [facility] Last Admin: 10/09/16 09:20 Dose: Not Given - Labs Labs: 10/09/16 07:51 10/09/16 07:51 PT 10.9 SECONDS (9.7-12.2) 10/07/16 06:31 INR 1.0 10/07/16 06:31 APTT 30 SECONDS (21-34) 10/07/16 06:31 - Constitutional Appears: Non-toxic, No Acute Distress - Head Exam Head Exam: ATRAUMATIC, NORMAL INSPECTION, NORMOCEPHALIC - Eye Exam Eye Exam: EOMI, Normal appearance, PERRL Pupil Exam: NORMAL ACCOMODATION, PERRL - ENT Exam ENT Exam: Mucous Membranes Moist, Normal Exam - Neck Exam Neck Exam: Full ROM, Normal Inspection - Respiratory Exam Respiratory Exam: Clear to Ausculation Bilateral, NORMAL BREATHING PATTERN - Cardiovascular Exam Cardiovascular Exam: REGULAR RHYTHM, +S1, +S2 - GI/Abdominal Exam GI & Abdominal Exam: Soft, Normal Bowel Sounds. absent: Tenderness - Extremities Exam Extremities Exam: Full ROM. absent: Normal Inspection (Left wrist deformity), Pedal Edema, Tenderness - Neurological Exam Neurological Exam: Alert, Awake, CN II-XII Intact, Oriented x3 - Psychiatric Exam Psychiatric exam: Normal Affect, Normal Mood - Skin Skin Exam: Dry, Intact, Normal Color, Warm. absent: Rash, Urticaria (resolved over lower abdomen/upper thighs) Assessment and Plan - Assessment and Plan (Free Text) Assessment: Rectal prolapse - Currently reduced -CT abd pelvis w/ po and IV contrast - findings of rectal wall thickening, focal colitis vs. procitis, no prolapse at time of imaging -Urticaria resolved Cardio consulted (Bella) - Echo w/findings of echo -EF >55%, mild - mod valvular , trace to mild AR, mild TR, mild pulmonary HTN - pt cleared for surgery today EKG NSR CXR neg GI consulted - colonoscopy performed on 10/08 w/cecal bx- findings pos for mild chronic inflammation and reactive changes, recs - peripheral hyperalimentation, Flagyl IV, PPIs, CA markers, more recs to follow Colace BID PRN - Surgery consulted (Felicitas) - plan for OR this afternoon, was NPO after MN , anticoagulation held, Typed and crossed 2 units pRBCs PT 10.9 INR 1.0 PTT 30 Hx of HTN - restarted home meds - monitor and adjust as necessary Hx of Gout - restart home meds PPX - Lovenox- hold ordered for 10/07 at 2330 - Pepcid Dispo s/p colonoscopy on 10/08 OR this afternoon Further mgmt post op as per surgery DW attending <Yasir Fitzgerald - Last Filed: 10/09/16 15:13> Objective - Vital Signs/Intake and Output Vital Signs (last 24 hours): Temp Pulse Resp BP Pulse Ox 97.9 F 63 15 143/90 98 10/09/16 13:55 10/09/16 14:53 10/09/16 14:53 10/09/16 14:53 10/09/16 14:53 Intake and Output: 10/09/16 10/09/16 06:59 18:59 Intake Total 1630 Balance 1630 - Medications Medications: Current Medications Allopurinol (Zyloprim) 100 mg PO DAILY [facility] Last Admin: 10/09/16 09:15 Dose: Not Given Amlodipine Besylate (Norvasc) 5 mg PO DAILY [facility] Last Admin: 10/09/16 09:20 Dose: Not Given Diphenhydramine HCl (Benadryl) 25 mg IVP Q6H PRN PRN Reason: Itching / Pruritus Last Admin: 10/07/16 14:28 Dose: 25 mg Docusate Sodium (Colace) 100 mg PO BID PRN PRN Reason: Constipation Last Admin: 10/07/16 10:48 Dose: 100 mg Enoxaparin Sodium (Lovenox) 40 mg SC DAILY [facility] Famotidine (Pepcid) 20 mg PO DAILY [facility] Last Admin: 10/09/16 09:14 Dose: Not Given Hydrochlorothiazide (Microzide) 12.5 mg PO DAILY [facility] Last Admin: 10/09/16 09:14 Dose: Not Given Hydromorphone HCl (Dilaudid) 0.5 mg IVP Q15M PRN PRN Reason: Pain, moderate (4-7) Stop: 10/09/16 16:45 Lactated Ringer's (Lactated Ringer's) 1,000 mls @ 75 mls/hr IV .[id number] [facility] Lidocaine HCl (Xylocaine 2% (Uro-Jet)) 0 ea TOP PRN PRN PRN Reason: Pain, Mild (1-3) Losartan Potassium (Cozaar) 100 mg PO DAILY [facility] Last Admin: 10/09/16 09:20 Dose: Not Given Morphine Sulfate (Morphine) 4 mg IVP Q4H PRN PRN Reason: Pain, severe (8-10) Morphine Sulfate (Morphine) 2 mg IVP Q4 PRN PRN Reason: Pain, moderate (4-7) Ondansetron HCl (Zofran Inj) 4 mg IVP ONCE PRN PRN Reason: Nausea/Vomiting Stop: 10/09/16 15:36 Petrolatum (Desitin Original) 1 gm TOP BID [facility] - Labs Labs: 10/09/16 07:51 10/09/16 07:51 PT 10.9 SECONDS (9.7-12.2) 10/07/16 06:31 INR 1.0 10/07/16 06:31 APTT 30 SECONDS (21-34) 10/07/16 06:31 Attending/Attestation - Attestation I have personally seen and examined this patient.: Yes I have fully participated in the care of the patient.: Yes I have reviewed all pertinent clinical information, including history, physical exam and plan: Yes Notes (Text): Medical Attending: Patient was seen and examined by me. Agree with the above note by the resident. The patient was seen by us earlier in the morning. She had a colonscopy on 10/08 - later in the day I saw her in PACU, however she had just come out of OR and was still sleepy at that time. thank you Yasir Fitzgerald
[2016-10-09] MEDS ORDERED: Midazolam 2 MG/2 ML VIAL ONE (12:09)
[2016-10-09] MEDS ORDERED: Propofol 10 mg/ml Inj (20 ML) ONE (12:09)
--- NOTE | 2016-10-09 12:09 | PN ---
DATE: 10/09/2016 LOCATION: 369, bed B. This is a 80-year-old female with a known history of rectal prolapse, post-colonoscopy yesterday, see n and examined today, appeared to be awake, alert, oriented, reported to go for OR today with Dr. John vázquez. No reported active bleeding, chest pain or significant shortness of breath. The pathology report from the colonoscopy done yesterday was seen without evidence of neoplastic carlson ges. The entire chart is reviewed including, but not limited to the most recent lab and radiology study re sults, current and the previous medication lists, current and the previous medical events, all the av ailable lab discussed with the staff on the floor. The patient has normal CBC, but thrombocytosis of 565 with normal SMA-18. Cancer markers reported to be normal. PHYSICAL EXAMINATION: GENERAL: A 80-year-old female, awake, alert, oriented. VITAL SIGNS: Afebrile with pulse of 72, respiratory rate 20-22 with blood pressure 150/94. HEENT: Showed pale, dry oral mucoid membrane. Nonicteric sclerae. LUNGS: Few scattered crepitation, decreased air entry at bases. HEART: Positive S1 and S2. ABDOMEN: Soft. Bowel sounds are present. No mass or organomegaly. No rebound tenderness or guardi ng. EXTREMITIES: With mild lower extremities edematous changes. No clubbing or cyanosis. Peripheral pu lses are positive. NEUROLOGIC: No reported new focal neurological deficits, sensory or motor. IMPRESSION: 1. Rectal prolapse. 2. Colitis. 3. Internal hemorrhoids. 4. Peptic ulcer disease by history. 5. Thrombocytosis of unclear etiology. 6. Known history of, but not limited to hypertension, gouty arthritis, peptic ulcer disease, osteopo rosis as well as bronchitis. SUGGESTION: 1. Continue current management. 2. We will follow up with you post-surgically. Tiffany Davis MD cc: 14 TT: 10/09/2016 12:08:50 Confirmation # [id number] Dictation # [id number] tn
[2016-10-09] MEDS ORDERED: ceFAZolin IV 1 gm in Dextrose 50 ML IVPB ONE (12:10)
[2016-10-09] MEDS ORDERED: metroNIDAZOLE IV 500 mg/100 ml 100 ML ONE (12:11)
[2016-10-09] MEDS ORDERED: Lactated Ringer's 1,000 ML IV ONE (12:40)
[2016-10-09] MEDS ORDERED: Bupivacaine-Epi 0.5%-1:200,000 PF Inj ONE (13:08)
[2016-10-09] MEDS ORDERED: Neostigmine Methylsulfate 3mg/3ml Syringe IV ONE (13:43)
[2016-10-09] MEDS ORDERED: Morphine 4 MG/ML VIAL IVP PRN (13:55)
--- NOTE | 2016-10-09 13:58 | PCM.SURG1 ---
Surgeon's Initial Post Op Note - Surgeon's Notes Surgeon: Dr. Polk Client Resource Specialist: Dr. Noriega, Dr. Henley Type of Anesthesia: General Endo, Local Pre-Operative Diagnosis: rectal prolapse Operative Findings: prolapsed rectal tissue Post-Operative Diagnosis: same Operation Performed: perineal approach repair of rectal prolapse Specimen/Specimens Removed: prolapsed rectal tissue Estimated Blood Loss: EBL {In ML}: 50 Blood Products Given: N/A Drains Used: No Drains Post-Op Condition: Good Date of Surgery/Procedure: 10/09/16 Time of Surgery/Procedure: 13:58
[2016-10-09] MEDS ORDERED: HYDROmorphone 0.5 mg/0.5 ml ISec ONE (14:15)
[2016-10-09] MEDS: HYDROmorphone 0.5 mg/0.5 ml ISec IVP PRN ×2 (14:15→14:54)
--- NOTE | 2016-10-09 15:50 | OP ---
PROCEDURE DATE: 10/09/2016 PREOPERATIVE DIAGNOSIS: Rectal prolapse. POSTOPERATIVE DIAGNOSIS: Rectal prolapse. PROCEDURE CARRIED OUT: Perineal repair of rectal prolapse. SURGEON: Joni Polk Jr., MD CHASSIS INSPECTOR: Dr. Noriega and Dr. Henley, residents. ANESTHESIOLOGIST: Dona Moy CRNA. INDICATIONS: The patient is an elderly woman who presented with rectal prolapse. OPERATIVE FINDINGS: We carried out a stapled Altemeier-type procedure. Basically, we injected Marcaine with epinephrine around the base of the rectal area that was not prolapsed. We then divided this with a WERO stapler long to get a posterior and anterior flap. Then, we used a circular stapler to close this. This went quite well. We had to do it in 3 different locations, so we had a nice round circular area. We then checked with digital rectal and there was a widely patent rectum. There was no further prolapse. The patient tolerated the procedure well. Blood loss of procedure was approximately 50 mL. Procedure carried out is perineal repair of rectal prolapse with partial colectomy. Joni Polk Jr., MD cc: 56 TT: 10/09/2016 15:49:24 tn MTDD
[2016-10-09] MEDS: Lactated Ringer's 1,000 ML IV SCH (16:30)
[2016-10-09] MEDS: Zinc Oxide Topical 30 gm Tube TOP SCH (18:58)
[2016-10-09] MEDS: metroNIDAZOLE IV 500 mg/100 ml 100 ML IVPB SCH (21:16)
[2016-10-10] MEDS: Lactated Ringer's 1,000 ML IV SCH ×2 (04:48→05:59)
[2016-10-10] MEDS: metroNIDAZOLE IV 500 mg/100 ml 100 ML IVPB SCH (05:58)
[2016-10-10 07:35] LABS: BASO # 0.1 K/uL (0.0-0.2); BASO % 0.5 % (0.0-2.0); EOS # 0.6 K/uL (0.0-0.7); EOS % 6.1 % (0.0-4.0); HEMATOCRIT 37.3 % (34.0-47.0); LYMPH # 2.2 K/uL (1.0-4.3); LYMPH % 20.3 % (20.0-40.0); MEAN CELL VOLUME 88.9 fL (81.0-99.0); MEAN CORPUSCULAR HEMOGLOBIN 29.5 pg (27.0-31.0); MEAN CORPUSCULAR HGB CONC 33.2 g/dL (33.0-37.0); MEAN PLATELET VOLUME 6.9 fL (7.2-11.7); MONO # 0.8 K/uL (0.0-0.8); MONO % 7.7 % (0.0-10.0); RED CELL DISTRIBUTION WIDTH 13.8 % (11.5-14.5); WHITE BLOOD COUNT 10.6 K/uL (4.8-10.8)
--- NOTE | 2016-10-10 07:49 | CP.PCM.PN ---
Subjective - Date & Time of Evaluation Date of Evaluation: 10/10/16 Time of Evaluation: 07:47 - Subjective Subjective: Surgery: Dr. Polk Patient doing very well this morning. She only complains of mild pain to the rectal area. She reports feeling nauseous x1 episode last night but no vomiting. She was OOB last night. Per nursing, urine output 1750cc/12hrs. Mcclendon discontinued while at bedside. Small amount of dark blood noted from rectum while wiping her backside but otherwise no bleeding events. Objective - Vital Signs/Intake and Output Vital Signs (last 24 hours): Temp Pulse Resp BP Pulse Ox 98.5 F 73 20 100/66 97 10/10/16 00:00 10/10/16 00:00 10/10/16 00:00 10/10/16 00:00 10/10/16 00:00 Intake and Output: 10/10/16 10/10/16 06:59 18:59 Intake Total 850 Output Total 750 Balance 100 - Medications Medications: Current Medications Allopurinol (Zyloprim) 100 mg PO DAILY [facility] Last Admin: 10/09/16 09:15 Dose: Not Given Amlodipine Besylate (Norvasc) 5 mg PO DAILY [facility] Last Admin: 10/09/16 09:20 Dose: Not Given Diphenhydramine HCl (Benadryl) 25 mg IVP Q6H PRN PRN Reason: Itching / Pruritus Last Admin: 10/07/16 14:28 Dose: 25 mg Docusate Sodium (Colace) 100 mg PO BID PRN PRN Reason: Constipation Last Admin: 10/07/16 10:48 Dose: 100 mg Enoxaparin Sodium (Lovenox) 40 mg SC DAILY [facility] Famotidine (Pepcid) 20 mg PO DAILY [facility] Last Admin: 10/09/16 09:14 Dose: Not Given Hydrochlorothiazide (Microzide) 12.5 mg PO DAILY [facility] Last Admin: 10/09/16 09:14 Dose: Not Given Lactated Ringer's (Lactated Ringer's) 1,000 mls @ 75 mls/hr IV .[id number] [facility] Last Admin: 10/10/16 05:59 Dose: 75 mls/hr Cefazolin Sodium 500 mg/ (Sodium Chloride) 50 mls @ 100 mls/hr IVPB Q8H [facility] Stop: 10/10/16 12:29 Last Admin: 10/10/16 04:47 Dose: 100 mls/hr Lidocaine HCl (Lidocaine Hydrochloride Jelly 2% 5 Ml) 0 ml TOP Q2H PRN PRN Reason: Pain, Mild (1-3) Losartan Potassium (Cozaar) 100 mg PO DAILY [facility] Last Admin: 10/09/16 09:20 Dose: Not Given Morphine Sulfate (Morphine) 4 mg IVP Q4H PRN PRN Reason: Pain, severe (8-10) Morphine Sulfate (Morphine) 2 mg IVP Q4 PRN PRN Reason: Pain, moderate (4-7) Last Admin: 10/10/16 05:56 Dose: 2 mg Ondansetron HCl (Zofran Inj) 4 mg IVP Q4 PRN PRN Reason: Nausea/Vomiting Last Admin: 10/09/16 19:37 Dose: 4 mg Petrolatum (Desitin Original) 0 gm TOP BID [facility] Last Admin: 10/09/16 18:58 Dose: 1 applic - Labs Labs: 10/10/16 07:18 10/09/16 07:51 PT 10.9 SECONDS (9.7-12.2) 10/07/16 06:31 INR 1.0 10/07/16 06:31 APTT 30 SECONDS (21-34) 10/07/16 06:31 - Constitutional Appears: Well, Non-toxic, No Acute Distress - Head Exam Head Exam: ATRAUMATIC, NORMOCEPHALIC - Eye Exam Eye Exam: EOMI, Normal appearance - ENT Exam ENT Exam: Mucous Membranes Moist - Respiratory Exam Respiratory Exam: NORMAL BREATHING PATTERN. absent: Respiratory Distress - Cardiovascular Exam Cardiovascular Exam: REGULAR RHYTHM. absent: Tachycardia - GI/Abdominal Exam GI & Abdominal Exam: Soft. absent: Distended, Guarding, Rigid, Tenderness, Rebound - Rectal Exam Additional comments: dried blood noted around anus, digital rectal exam deferred. no active bleeding noted, no evidence of rectal prolpase w/ coughing - Extremities Exam Extremities Exam: Normal Inspection. absent: Calf Tenderness - Neurological Exam Neurological Exam: Alert, Awake, Oriented x3 - Psychiatric Exam Psychiatric exam: Normal Affect, Normal Mood - Skin Skin Exam: Dry, Normal Color, Warm Assessment and Plan - Assessment and Plan (Free Text) Assessment: 80 y/o female w/ rectal prolapse s/p perineal rectal prolapse stapling repair POD1 Plan: -no meds per rectum -ADAT -montior for bowel function -cont colace BID -encourage ambulation and IS use -f/u am labs -further recs per Dr. Felicitas Ignacio PGY1
[2016-10-10] MEDS ORDERED: Lidocaine 2% Jelly (5 ml) TOP PRN (08:00)
--- NOTE | 2016-10-10 08:28 | CP.PCM.PN ---
Subjective - Date & Time of Evaluation Date of Evaluation: 10/10/16 Time of Evaluation: 08:05 - Subjective Subjective: Pt without complaints bp stable Objective - Vital Signs/Intake and Output Vital Signs (last 24 hours): Temp Pulse Resp BP Pulse Ox 98.7 F 69 18 145/81 96 10/10/16 07:00 10/10/16 07:00 10/10/16 07:00 10/10/16 07:00 10/10/16 07:00 Intake and Output: 10/10/16 10/10/16 06:59 18:59 Intake Total 850 840 Output Total 750 400 Balance 100 440 - Medications Medications: Current Medications Allopurinol (Zyloprim) 100 mg PO DAILY [facility] Last Admin: 10/09/16 09:15 Dose: Not Given Amlodipine Besylate (Norvasc) 5 mg PO DAILY [facility] Last Admin: 10/09/16 09:20 Dose: Not Given Diphenhydramine HCl (Benadryl) 25 mg IVP Q6H PRN PRN Reason: Itching / Pruritus Last Admin: 10/07/16 14:28 Dose: 25 mg Docusate Sodium (Colace) 100 mg PO BID PRN PRN Reason: Constipation Last Admin: 10/07/16 10:48 Dose: 100 mg Enoxaparin Sodium (Lovenox) 40 mg SC DAILY [facility] Famotidine (Pepcid) 20 mg PO DAILY [facility] Last Admin: 10/09/16 09:14 Dose: Not Given Hydrochlorothiazide (Microzide) 12.5 mg PO DAILY [facility] Last Admin: 10/09/16 09:14 Dose: Not Given Lactated Ringer's (Lactated Ringer's) 1,000 mls @ 75 mls/hr IV .[id number] [facility] Last Admin: 10/10/16 05:59 Dose: 75 mls/hr Cefazolin Sodium 500 mg/ (Sodium Chloride) 50 mls @ 100 mls/hr IVPB Q8H [facility] Stop: 10/10/16 12:29 Last Admin: 10/10/16 04:47 Dose: 100 mls/hr Lidocaine HCl (Lidocaine Hydrochloride Jelly 2% 5 Ml) 0 ml TOP Q2H PRN PRN Reason: Pain, Mild (1-3) Losartan Potassium (Cozaar) 100 mg PO DAILY [facility] Last Admin: 10/09/16 09:20 Dose: Not Given Morphine Sulfate (Morphine) 4 mg IVP Q4H PRN PRN Reason: Pain, severe (8-10) Morphine Sulfate (Morphine) 2 mg IVP Q4 PRN PRN Reason: Pain, moderate (4-7) Last Admin: 10/10/16 05:56 Dose: 2 mg Ondansetron HCl (Zofran Inj) 4 mg IVP Q4 PRN PRN Reason: Nausea/Vomiting Last Admin: 10/09/16 19:37 Dose: 4 mg Petrolatum (Desitin Original) 0 gm TOP BID [facility] Last Admin: 10/09/16 18:58 Dose: 1 applic - Labs Labs: 10/10/16 07:18 10/09/16 07:51 PT 10.9 SECONDS (9.7-12.2) 10/07/16 06:31 INR 1.0 10/07/16 06:31 APTT 30 SECONDS (21-34) 10/07/16 06:31 - Constitutional Appears: Well - Head Exam Head Exam: ATRAUMATIC - Eye Exam Eye Exam: Normal appearance - ENT Exam ENT Exam: Mucous Membranes Moist - Respiratory Exam Respiratory Exam: Clear to Ausculation Bilateral - Cardiovascular Exam Cardiovascular Exam: REGULAR RHYTHM - GI/Abdominal Exam GI & Abdominal Exam: Normal Bowel Sounds - Exam External exam: NORMAL EXTERNAL EXAM - Extremities Exam Extremities Exam: Normal Inspection - Neurological Exam Neurological Exam: Alert - Psychiatric Exam Psychiatric exam: Normal Mood - Skin Skin Exam: Dry, Intact Assessment and Plan (1) Rectal prolapse Assessment & Plan: I explained the procedure in Frisian to her. We will check echo and continue BP med no complaints at present Status: Acute (2) History of hypertension Status: Chronic
[2016-10-10 08:34] LABS: CHLORIDE 94 mmol/L (98-107); POTASSIUM 3.5 mmol/L (3.6-5.2); SODIUM 137 mmol/L (132-148)
[2016-10-10 08:36] LABS: BILIRUBIN,TOTAL 0.7 mg/dL (0.2-1.3); CARBON DIOXIDE 29 mmol/L (22-30); GFR AFRICAN-AMERICAN > 60
[2016-10-10 08:37] LABS: ALKALINE PHOSPHATASE 68 U/L (38-126); ALT/SGPT 26 U/L (9-52); AST/SGOT 21 U/L (14-36); BLOOD UREA NITROGEN 12 mg/dL (7-17); CALCIUM 8.5 mg/dl (8.6-10.4); GLUCOSE,RANDOM 88 mg/dL (65-105); TOTAL PROTEIN 6.1 g/dL (6.3-8.3)
[2016-10-10 08:44] LABS: ALB/GLOB RATIO 1.2 (1.0-2.1)
[2016-10-10] MEDS ORDERED: Potassium Chloride 20 mEq ER Tab PO STA ×2 (09:28→11:40)
--- NOTE | 2016-10-10 10:41 | RAD ---
HISTORY: rhonchi and coughing COMPARISON: 10/06/2016 FINDINGS: LUNGS: Mild venous congestion. Upper lobe granulomatous changes. Patchy right basilar airspace opacity. PLEURA: As above. CARDIOVASCULAR: Cardiomegaly. Enlarged ectatic aorta. Calcification at the aortic knob. OSSEOUS STRUCTURES: Degenerative changes in the spine and shoulders. VISUALIZED UPPER ABDOMEN: Normal. OTHER FINDINGS: None. IMPRESSION: Mild venous congestion. Upper lobe granulomatous changes. Patchy right basilar airspace opacity.
[2016-10-10] MEDS: Enoxaparin 40 mg Syringe SC SCH (11:00)
[2016-10-10] MEDS: Zinc Oxide Topical 30 gm Tube TOP SCH ×2 (11:38→19:00)
--- NOTE | 2016-10-10 12:38 | PN ---
DATE: 10/10/2016 LOCATION: 356, bed B. This is a 80-year-old female seen and examined at rounds post-rectal prolapse surgery done by Dr. John vázquez, appeared to be awake, alert, oriented, without any reported significant complication with trac e of fresh blood rectally this morning. The entire chart is reviewed including, but not limited to the most recent lab and radiology study re sults, current and the previous medication lists, current and the previous medical events, allergy to medication list. Case discussed at length with the staff on the floor. The patient still has rectal pain on and off with periods of nausea, but no reported vomiting with dy spepsia. Most recent lab results showed normal CBC so far with decreased potassium to 3.5, low calcium 8.5 wit h low total protein 6.1, low albumin 3.3. Today's chest x-ray report and films seen indicative of mild venous congestion with patchy right basi lar airspace opacity that could be an early stage of pneumonia. PHYSICAL EXAMINATION: GENERAL: A 80-year-old female. VITAL SIGNS: Afebrile with pulse of 72, respiratory rate 20-22 with blood pressure of 120/74. HEENT: Showed pale, dry oral mucoid membrane. Nonicteric sclerae. NEUROLOGIC: No reported new neurological deficits, sensory or motor. EXTREMITIES: With evidence of osteoarthritis. ABDOMEN: Soft with slight generalized tenderness. IMPRESSION: 1. Rectal prolapse. 2. Left-sided colitis. 3. Known history of internal hemorrhoids. 4. Reexacerbation of peptic ulcer disease. 5. Known history of, but not limited to gouty arthritis, hypertension, osteoporosis and bronchitis. 6. Mild congestive heart failure with possible pneumonia. SUGGESTION: 1. Continue current management. 2. Antireflux measure. 3. Flagyl IV. Tiffany Davis MD cc: 14 TT: 10/10/2016 12:38:00 Confirmation # [id number] Dictation # [id number] tn
--- NOTE | 2016-10-10 13:18 | CP.PCM.PN ---
<Brittany Murray Swati - Last Filed: 10/10/16 13:08> Subjective - Date & Time of Evaluation Date of Evaluation: 10/10/16 Time of Evaluation: 08:40 - Subjective Subjective: PGY2 Medicine Note - Dr. Fitzgerald's service: Patient seen and examined at bedside this AM. Patient reports feeling well. Patient has cough productive of white phlegm which started last night. Patient denies fever, chills, chest pain, SOB, abdominal pain, nausea, vomiting, bowel movement since surgery. On later examination by Dr. Fitzgerald, patient was in tears over suprpubic pain s/p baptiste removal. Bladder scan showed 730cc. Urinary cath reinserted. Objective - Vital Signs/Intake and Output Vital Signs (last 24 hours): Temp Pulse Resp BP Pulse Ox 98.7 F 69 18 145/81 96 10/10/16 07:00 10/10/16 08:49 10/10/16 07:00 10/10/16 07:00 10/10/16 07:00 Intake and Output: 10/10/16 10/10/16 06:59 18:59 Intake Total 850 840 Output Total 750 400 Balance 100 440 - Medications Medications: Current Medications Allopurinol (Zyloprim) 100 mg PO DAILY [facility] Last Admin: 10/10/16 11:00 Dose: 100 mg Amlodipine Besylate (Norvasc) 5 mg PO DAILY [facility] Last Admin: 10/10/16 11:00 Dose: 5 mg Diphenhydramine HCl (Benadryl) 25 mg IVP Q6H PRN PRN Reason: Itching / Pruritus Last Admin: 10/07/16 14:28 Dose: 25 mg Docusate Sodium (Colace) 100 mg PO BID PRN PRN Reason: Constipation Last Admin: 10/07/16 10:48 Dose: 100 mg Enoxaparin Sodium (Lovenox) 40 mg SC DAILY [facility] Last Admin: 10/10/16 11:00 Dose: Not Given Famotidine (Pepcid) 20 mg PO DAILY [facility] Last Admin: 10/10/16 11:00 Dose: 20 mg Hydrochlorothiazide (Microzide) 12.5 mg PO DAILY [facility] Last Admin: 10/10/16 11:00 Dose: 12.5 mg Lactated Ringer's (Lactated Ringer's) 1,000 mls @ 75 mls/hr IV .[id number] [facility] Last Admin: 10/10/16 05:59 Dose: 75 mls/hr Lidocaine HCl (Lidocaine Hydrochloride Jelly 2% 5 Ml) 0 ml TOP Q2H PRN PRN Reason: Pain, Mild (1-3) Losartan Potassium (Cozaar) 100 mg PO DAILY [facility] Last Admin: 10/10/16 11:00 Dose: 100 mg Morphine Sulfate (Morphine) 4 mg IVP Q4H PRN PRN Reason: Pain, severe (8-10) Morphine Sulfate (Morphine) 2 mg IVP Q4 PRN PRN Reason: Pain, moderate (4-7) Last Admin: 10/10/16 05:56 Dose: 2 mg Ondansetron HCl (Zofran Inj) 4 mg IVP Q4 PRN PRN Reason: Nausea/Vomiting Last Admin: 10/09/16 19:37 Dose: 4 mg Petrolatum (Desitin Original) 0 gm TOP BID [facility] Last Admin: 10/10/16 11:38 Dose: 1 applic - Labs Labs: 10/10/16 07:18 10/10/16 07:18 PT 10.9 SECONDS (9.7-12.2) 10/07/16 06:31 INR 1.0 10/07/16 06:31 APTT 30 SECONDS (21-34) 10/07/16 06:31 - Constitutional Appears: Non-toxic, No Acute Distress - Head Exam Head Exam: NORMAL INSPECTION - Eye Exam Eye Exam: EOMI - ENT Exam ENT Exam: Mucous Membranes Moist - Respiratory Exam Respiratory Exam: Rhonchi, NORMAL BREATHING PATTERN. absent: Rales, Wheezes - Cardiovascular Exam Cardiovascular Exam: REGULAR RHYTHM, +S1, +S2, Murmur - GI/Abdominal Exam GI & Abdominal Exam: Soft, Normal Bowel Sounds. absent: Firm, Guarding, Tenderness - Extremities Exam Extremities Exam: Normal Capillary Refill. absent: Pedal Edema - Neurological Exam Neurological Exam: Alert, Oriented x3 - Psychiatric Exam Psychiatric exam: Normal Affect, Normal Mood - Skin Skin Exam: Normal Color, Warm Assessment and Plan - Assessment and Plan (Free Text) Assessment: Rectal prolapse - Currently reduced -CT abd pelvis w/ po and IV contrast - findings of rectal wall thickening, focal colitis vs. procitis, no prolapse at time of imaging -Urticaria resolved Cardio consulted (Voudyolanda) - Echo w/findings of echo -EF >55%, mild - mod valvular , trace to mild AR, mild TR, mild pulmonary HTN - pt cleared for surgery 10/09/16 EKG NSR CXR neg PT 10.9 INR 1.0 PTT 30 GI consulted - colonoscopy performed on 10/08 w/cecal bx- findings pos for mild chronic inflammation and reactive changes, recs - peripheral hyperalimentation, Flagyl IV, PPIs, CA markers, more recs to follow Colace BID PRN Surgery consulted (Felicitas) - s/p perineal rectal prolapse stapling repair POD #1 - help appreciated Urinary retention baptiste d/hernesto 10/10/16 730cc of urine on bladder scan baptiste re-inserted 10/10/16 Hx of HTN - restarted home meds - monitor and adjust as necessary Hx of Gout - restart home meds PPX - Lovenox- hold ordered for 10/07 at 2330 - Pepcid DW attending <Yasir Fitzgerald - Last Filed: 10/10/16 14:40> Objective - Vital Signs/Intake and Output Vital Signs (last 24 hours): Temp Pulse Resp BP Pulse Ox 98.7 F 69 18 145/81 96 10/10/16 07:00 10/10/16 08:49 10/10/16 07:00 10/10/16 07:00 10/10/16 07:00 Intake and Output: 10/10/16 10/10/16 06:59 18:59 Intake Total 850 840 Output Total 750 400 Balance 100 440 - Medications Medications: Current Medications Allopurinol (Zyloprim) 100 mg PO DAILY [facility] Last Admin: 10/10/16 11:00 Dose: 100 mg Amlodipine Besylate (Norvasc) 5 mg PO DAILY [facility] Last Admin: 10/10/16 11:00 Dose: 5 mg Diphenhydramine HCl (Benadryl) 25 mg IVP Q6H PRN PRN Reason: Itching / Pruritus Last Admin: 10/07/16 14:28 Dose: 25 mg Docusate Sodium (Colace) 100 mg PO BID PRN PRN Reason: Constipation Last Admin: 10/07/16 10:48 Dose: 100 mg Enoxaparin Sodium (Lovenox) 40 mg SC DAILY [facility] Last Admin: 10/10/16 11:00 Dose: Not Given Famotidine (Pepcid) 20 mg PO DAILY [facility] Last Admin: 10/10/16 11:00 Dose: 20 mg Hydrochlorothiazide (Microzide) 12.5 mg PO DAILY [facility] Last Admin: 10/10/16 11:00 Dose: 12.5 mg Lactated Ringer's (Lactated Ringer's) 1,000 mls @ 75 mls/hr IV .[id number] [facility] Last Admin: 10/10/16 05:59 Dose: 75 mls/hr Lidocaine HCl (Lidocaine Hydrochloride Jelly 2% 5 Ml) 0 ml TOP Q2H PRN PRN Reason: Pain, Mild (1-3) Losartan Potassium (Cozaar) 100 mg PO DAILY [facility] Last Admin: 10/10/16 11:00 Dose: 100 mg Morphine Sulfate (Morphine) 4 mg IVP Q4H PRN PRN Reason: Pain, severe (8-10) Morphine Sulfate (Morphine) 2 mg IVP Q4 PRN PRN Reason: Pain, moderate (4-7) Last Admin: 10/10/16 05:56 Dose: 2 mg Ondansetron HCl (Zofran Inj) 4 mg IVP Q4 PRN PRN Reason: Nausea/Vomiting Last Admin: 10/09/16 19:37 Dose: 4 mg Petrolatum (Desitin Original) 0 gm TOP BID [facility] Last Admin: 10/10/16 11:38 Dose: 1 applic - Labs Labs: 10/10/16 07:18 10/10/16 07:18 PT 10.9 SECONDS (9.7-12.2) 10/07/16 06:31 INR 1.0 10/07/16 06:31 APTT 30 SECONDS (21-34) 10/07/16 06:31 Attending/Attestation - Attestation I have personally seen and examined this patient.: Yes I have fully participated in the care of the patient.: Yes I have reviewed all pertinent clinical information, including history, physical exam and plan: Yes Notes (Text): 10/10/16 14:36 Medical Attending: Patient was seen and examined by me. She was reporting a lot of suprapubic area pain, moaning, and she reported feeling uncomfortable. Earlier in the day had baptiste removed and per discussion with RN she has not been able to urinate. The patient had a baptiste cather previously and this was removed. She had a bedside bladder scan done and it showed she had >750ml of urine, she was promply given a traight cather thank you Yasir Fitzgerald
[2016-10-11 00:09] VITALS: RESP 20
[2016-10-11] MEDS: DiphenhydrAMINE 50 mg/ml Inj IVP PRN (01:14)
[2016-10-11 07:23] LABS: BASO # 0.1 K/uL (0.0-0.2); BASO % 1.1 % (0.0-2.0); EOS # 0.8 K/uL (0.0-0.7); HEMATOCRIT 42.8 % (34.0-47.0); LYMPH # 2.4 K/uL (1.0-4.3); LYMPH % 24.3 % (20.0-40.0); MEAN CELL VOLUME 88.9 fL (81.0-99.0); MEAN CORPUSCULAR HEMOGLOBIN 28.5 pg (27.0-31.0); MEAN CORPUSCULAR HGB CONC 32.1 g/dL (33.0-37.0); MONO # 0.7 K/uL (0.0-0.8); NRBC % 0.3 % (0.0-2.0); RED CELL DISTRIBUTION WIDTH 13.9 % (11.5-14.5); WHITE BLOOD COUNT 9.9 K/uL (4.8-10.8)
[2016-10-11 07:39] LABS: CHLORIDE 92 mmol/L (98-107)
[2016-10-11 07:40] LABS: POTASSIUM 3.5 mmol/L (3.6-5.2); SODIUM 136 mmol/L (132-148)
[2016-10-11 07:42] LABS: ALB/GLOB RATIO 1.2 (1.0-2.1); AST/SGOT 21 U/L (14-36); BILIRUBIN,TOTAL 0.9 mg/dL (0.2-1.3); BLOOD UREA NITROGEN 9 mg/dL (7-17); CARBON DIOXIDE 31 mmol/L (22-30); GFR AFRICAN-AMERICAN > 60; TOTAL PROTEIN 6.5 g/dL (6.3-8.3)
[2016-10-11 07:43] LABS: ALKALINE PHOSPHATASE 74 U/L (38-126); ALT/SGPT 23 U/L (9-52); GLUCOSE,RANDOM 89 mg/dL (65-105)
[2016-10-11] MEDS ORDERED: Potassium Chloride 20 mEq ER Tab PO STA (08:25)
--- NOTE | 2016-10-11 08:27 | CP.PCM.PN ---
Subjective - Date & Time of Evaluation Date of Evaluation: 10/11/16 Time of Evaluation: 08:25 - Subjective Subjective: no cp feeling better Objective - Vital Signs/Intake and Output Vital Signs (last 24 hours): Temp Pulse Resp BP Pulse Ox 98.4 F 75 20 108/68 95 10/11/16 00:06 10/11/16 00:06 10/11/16 00:06 10/11/16 00:06 10/11/16 00:06 Intake and Output: 10/11/16 10/11/16 06:59 18:59 Intake Total 250 Output Total 800 Balance -550 - Medications Medications: Current Medications Allopurinol (Zyloprim) 100 mg PO DAILY [facility] Last Admin: 10/10/16 11:00 Dose: 100 mg Amlodipine Besylate (Norvasc) 5 mg PO DAILY [facility] Last Admin: 10/10/16 11:00 Dose: 5 mg Diphenhydramine HCl (Benadryl) 25 mg IVP Q6H PRN PRN Reason: Itching / Pruritus Last Admin: 10/11/16 01:14 Dose: 25 mg Docusate Sodium (Colace) 100 mg PO BID PRN PRN Reason: Constipation Last Admin: 10/07/16 10:48 Dose: 100 mg Enoxaparin Sodium (Lovenox) 40 mg SC DAILY [facility] Last Admin: 10/10/16 11:00 Dose: Not Given Famotidine (Pepcid) 20 mg PO DAILY [facility] Last Admin: 10/10/16 11:00 Dose: 20 mg Hydrochlorothiazide (Microzide) 12.5 mg PO DAILY [facility] Last Admin: 10/10/16 11:00 Dose: 12.5 mg Lidocaine HCl (Lidocaine Hydrochloride Jelly 2% 5 Ml) 0 ml TOP Q2H PRN PRN Reason: Pain, Mild (1-3) Losartan Potassium (Cozaar) 100 mg PO DAILY [facility] Last Admin: 10/10/16 11:00 Dose: 100 mg Morphine Sulfate (Morphine) 4 mg IVP Q4H PRN PRN Reason: Pain, severe (8-10) Morphine Sulfate (Morphine) 2 mg IVP Q4 PRN PRN Reason: Pain, moderate (4-7) Last Admin: 10/10/16 22:22 Dose: 2 mg Ondansetron HCl (Zofran Inj) 4 mg IVP Q4 PRN PRN Reason: Nausea/Vomiting Last Admin: 10/09/16 19:37 Dose: 4 mg Petrolatum (Desitin Original) 0 gm TOP BID [facility] Last Admin: 10/10/16 19:00 Dose: 1 applic Potassium Chloride (K-Dur 20 Meq Er Tab) 40 meq PO STAT [facility] Stop: 10/11/16 08:26 - Labs Labs: 10/11/16 07:09 10/11/16 07:09 PT 10.9 SECONDS (9.7-12.2) 10/07/16 06:31 INR 1.0 10/07/16 06:31 APTT 30 SECONDS (21-34) 10/07/16 06:31 - Constitutional Appears: Well - Head Exam Head Exam: ATRAUMATIC - Eye Exam Eye Exam: Normal appearance - ENT Exam ENT Exam: Mucous Membranes Moist - Respiratory Exam Respiratory Exam: Clear to Ausculation Bilateral - Cardiovascular Exam Cardiovascular Exam: REGULAR RHYTHM - GI/Abdominal Exam GI & Abdominal Exam: Soft - Exam External exam: NORMAL EXTERNAL EXAM - Extremities Exam Extremities Exam: Normal Inspection - Neurological Exam Neurological Exam: Alert, Awake - Psychiatric Exam Psychiatric exam: Normal Affect, Normal Mood - Skin Skin Exam: Normal Color Assessment and Plan (1) Rectal prolapse Assessment & Plan: continue bp med no issues Status: Acute (2) History of hypertension Status: Chronic
[2016-10-11] MEDS: Zinc Oxide Topical 30 gm Tube TOP SCH ×2 (09:14→17:27)
[2016-10-11] MEDS: Moxifloxacin IV 400mg/250ml NS 250 ML IVPB SCH (09:30)
[2016-10-11] MEDS: Enoxaparin 40 mg Syringe SC SCH (11:27)
--- NOTE | 2016-10-11 13:00 | PN ---
DATE: 10/11/2016 LOCATION: [address]. This is a 80-year-old female seen and examined in rounds without reported hematemesis, but very rare, small amount of rectal bleeding. Tolerating oral intake well. The entire chart is reviewed, includ ing but not limited to the most recent lab and radiology study results, current and previous medicati on list, current and the previous medical events. The patient is still complaining of rectal bleedin g also on off with normal CBC, low potassium 3.5 and a mildly elevated CO2 content of 31 indicative o f respiratory alkalosis. PHYSICAL EXAMINATION: GENERAL: A 80-year-old female. VITAL SIGNS: Afebrile with heart rate of 80, respiratory rate 20-22, blood pressure 112/74. HEENT: Showed pale, dry oral mucoid membrane. Nonicteric sclerae. LUNGS: Few scattered crepitation, decreased air entry at bases. HEART: Positive S1 and S2. ABDOMEN: Soft with slight lower extremity tenderness. No mass or organomegaly. No rebound tenderne ss or guarding. EXTREMITIES: With slight lower extremity edematous changes. NEUROLOGIC: No reported new neurological deficits, sensory or motor. It has to be mentioned that the patient had her Mcclendon catheter reinserted due to bladder distention. IMPRESSION: 1. Rectal prolapse, treated surgically. 2. Left-sided colitis by history. 3. Known history of internal hemorrhoids. 4. Known history of peptic ulcer disease. 5. Known history of, but not limited to hypertension, gouty arthritis, osteoporosis and bronchitis, still has dry cough once in a while. 6. Mild congestive heart failure with possible recurrent bronchitis versus early stage of pneumonia. SUGGESTION: 1. Continue current management. 2. Current medication as well as continue proton pump inhibitors. Tiffany Davis MD cc: 14 TT: 10/11/2016 13:00:08 Confirmation # [id number] Dictation # [id number]
--- NOTE | 2016-10-11 14:08 | CP.PCM.PN ---
<Brittany Murray Swati - Last Filed: 10/11/16 14:01> Subjective - Date & Time of Evaluation Date of Evaluation: 10/11/16 Time of Evaluation: 07:45 - Subjective Subjective: PGY2 Medicine Note - Dr. Fitzgerald's service: Patient seen and examined at bedside this AM. Patient reports feeling well. Patient says she still has a cough. Patient denies fever, chills, chest pain, SOB, abdominal pain, nausea, vomiting, bowel movement since surgery. Patient says she wants to shower. Objective - Vital Signs/Intake and Output Vital Signs (last 24 hours): Temp Pulse Resp BP Pulse Ox 98.1 F 76 20 118/76 91 L 10/11/16 08:38 10/11/16 11:43 10/11/16 08:38 10/11/16 08:38 10/11/16 08:38 Intake and Output: 10/11/16 10/11/16 06:59 18:59 Intake Total 250 Output Total 800 Balance -550 - Medications Medications: Current Medications Allopurinol (Zyloprim) 100 mg PO DAILY [facility] Last Admin: 10/11/16 09:13 Dose: 100 mg Amlodipine Besylate (Norvasc) 5 mg PO DAILY [facility] Last Admin: 10/11/16 09:13 Dose: 5 mg Diphenhydramine HCl (Benadryl) 25 mg IVP Q6H PRN PRN Reason: Itching / Pruritus Last Admin: 10/11/16 01:14 Dose: 25 mg Docusate Sodium (Colace) 100 mg PO BID PRN PRN Reason: Constipation Last Admin: 10/07/16 10:48 Dose: 100 mg Enoxaparin Sodium (Lovenox) 40 mg SC DAILY [facility] Last Admin: 10/11/16 11:27 Dose: 40 mg Famotidine (Pepcid) 20 mg PO DAILY [facility] Last Admin: 10/11/16 09:13 Dose: 20 mg Hydrochlorothiazide (Microzide) 12.5 mg PO DAILY [facility] Last Admin: 10/11/16 09:13 Dose: 12.5 mg Moxifloxacin HCl (Avelox Iv 400mg/250ml Ns) 250 mls @ 167 mls/hr IVPB Q24H [facility] Last Admin: 10/11/16 09:30 Dose: 167 mls/hr Lidocaine HCl (Lidocaine Hydrochloride Jelly 2% 5 Ml) 0 ml TOP Q2H PRN PRN Reason: Pain, Mild (1-3) Losartan Potassium (Cozaar) 100 mg PO DAILY [facility] Last Admin: 10/11/16 09:13 Dose: 100 mg Morphine Sulfate (Morphine) 4 mg IVP Q4H PRN PRN Reason: Pain, severe (8-10) Morphine Sulfate (Morphine) 2 mg IVP Q4 PRN PRN Reason: Pain, moderate (4-7) Last Admin: 10/11/16 09:14 Dose: 2 mg Ondansetron HCl (Zofran Inj) 4 mg IVP Q4 PRN PRN Reason: Nausea/Vomiting Last Admin: 10/09/16 19:37 Dose: 4 mg Petrolatum (Desitin Original) 0 gm TOP BID [facility] Last Admin: 10/11/16 09:14 Dose: 1 applic - Labs Labs: 10/11/16 07:09 10/11/16 07:09 PT 10.9 SECONDS (9.7-12.2) 10/07/16 06:31 INR 1.0 10/07/16 06:31 APTT 30 SECONDS (21-34) 10/07/16 06:31 - Constitutional Appears: Non-toxic, No Acute Distress - Head Exam Head Exam: NORMAL INSPECTION - Eye Exam Eye Exam: EOMI - ENT Exam ENT Exam: Mucous Membranes Moist - Respiratory Exam Respiratory Exam: Rhonchi, NORMAL BREATHING PATTERN. absent: Rales, Wheezes - Cardiovascular Exam Cardiovascular Exam: REGULAR RHYTHM, +S1, +S2. absent: Gallop, Rubs, Murmur - GI/Abdominal Exam GI & Abdominal Exam: Soft, Normal Bowel Sounds. absent: Firm, Guarding, Tenderness - Extremities Exam Extremities Exam: Normal Capillary Refill. absent: Pedal Edema - Neurological Exam Neurological Exam: Alert, Oriented x3 - Psychiatric Exam Psychiatric exam: Normal Affect, Normal Mood - Skin Skin Exam: Normal Color, Warm Assessment and Plan - Assessment and Plan (Free Text) Assessment: Rectal prolapse - Currently reduced -CT abd pelvis w/ po and IV contrast - findings of rectal wall thickening, focal colitis vs. procitis, no prolapse at time of imaging -Urticaria resolved Cardio consulted (Voudouris) - Echo w/findings of echo -EF >55%, mild - mod valvular , trace to mild AR, mild TR, mild pulmonary HTN - pt cleared for surgery 10/09/16 EKG NSR CXR neg PT 10.9 INR 1.0 PTT 30 GI consulted - colonoscopy performed on 10/08 w/cecal bx- findings pos for mild chronic inflammation and reactive changes, recs - peripheral hyperalimentation, Flagyl IV, PPIs, CA markers, more recs to follow Colace BID PRN Surgery consulted (Felicitas) - s/p perineal rectal prolapse stapling repair POD #2 - help appreciated Pneumonia CXR 10/10/16 - mild venous congestion; upper lobe granulomatous changes; patchy right basilar airspace opacity Avelox 400mg IVPB daily Urinary retention baptiste d/hernesto 10/10/16 730cc of urine on bladder scan baptiste re-inserted 10/10/16: over 1L of urine came out Take out baptiste today at 2:30 to 3pm Bladder scans PRN Hx of HTN - restarted home meds - monitor and adjust as necessary Hx of Gout - restart home meds PPX - Lovenox- hold ordered for 10/07 at 2330 - Pepcieric <Yasir Fitzgerald - Last Filed: 10/11/16 14:41> Objective - Vital Signs/Intake and Output Vital Signs (last 24 hours): Temp Pulse Resp BP Pulse Ox 98.1 F 76 20 118/76 91 L 10/11/16 08:38 10/11/16 11:43 10/11/16 08:38 10/11/16 08:38 10/11/16 08:38 Intake and Output: 10/11/16 10/11/16 06:59 18:59 Intake Total 250 Output Total 1300 Balance -1050 - Medications Medications: Current Medications Allopurinol (Zyloprim) 100 mg PO DAILY [facility] Last Admin: 10/11/16 09:13 Dose: 100 mg Amlodipine Besylate (Norvasc) 5 mg PO DAILY [facility] Last Admin: 10/11/16 09:13 Dose: 5 mg Diphenhydramine HCl (Benadryl) 25 mg IVP Q6H PRN PRN Reason: Itching / Pruritus Last Admin: 10/11/16 01:14 Dose: 25 mg Docusate Sodium (Colace) 100 mg PO BID PRN PRN Reason: Constipation Last Admin: 10/07/16 10:48 Dose: 100 mg Enoxaparin Sodium (Lovenox) 40 mg SC DAILY [facility] Last Admin: 10/11/16 11:27 Dose: 40 mg Famotidine (Pepcid) 20 mg PO DAILY [facility] Last Admin: 10/11/16 09:13 Dose: 20 mg Hydrochlorothiazide (Microzide) 12.5 mg PO DAILY [facility] Last Admin: 10/11/16 09:13 Dose: 12.5 mg Moxifloxacin HCl (Avelox Iv 400mg/250ml Ns) 250 mls @ 167 mls/hr IVPB Q24H [facility] Last Admin: 10/11/16 09:30 Dose: 167 mls/hr Lidocaine HCl (Lidocaine Hydrochloride Jelly 2% 5 Ml) 0 ml TOP Q2H PRN PRN Reason: Pain, Mild (1-3) Losartan Potassium (Cozaar) 100 mg PO DAILY [facility] Last Admin: 10/11/16 09:13 Dose: 100 mg Morphine Sulfate (Morphine) 4 mg IVP Q4H PRN PRN Reason: Pain, severe (8-10) Morphine Sulfate (Morphine) 2 mg IVP Q4 PRN PRN Reason: Pain, moderate (4-7) Last Admin: 10/11/16 09:14 Dose: 2 mg Ondansetron HCl (Zofran Inj) 4 mg IVP Q4 PRN PRN Reason: Nausea/Vomiting Last Admin: 10/09/16 19:37 Dose: 4 mg Petrolatum (Desitin Original) 0 gm TOP BID [facility] Last Admin: 10/11/16 09:14 Dose: 1 applic - Labs Labs: 10/11/16 07:09 10/11/16 07:09 PT 10.9 SECONDS (9.7-12.2) 10/07/16 06:31 INR 1.0 10/07/16 06:31 APTT 30 SECONDS (21-34) 10/07/16 06:31 Attending/Attestation - Attestation I have personally seen and examined this patient.: Yes I have fully participated in the care of the patient.: Yes I have reviewed all pertinent clinical information, including history, physical exam and plan: Yes Notes (Text): 10/11/16 14:39 Medical attending: Patient was seen and examined by me, agrees the above note by medical dermatologist. Yesterday she was having a lot of suprapubic area tenderness she was moaning a lot and bladder scan was done showed that she retained quite a bit of urine this is may be due to per anesthesia the patient received. These Baptiste catheter was inserted and she had a lot of urine output and she then felt much better This morning the patient reported that her abdominal pain had resolved that she is feeling well, but that she was anxious and nervous she still has the Baptiste catheter at this time. At about 3 or 4:00 will remove the Baptiste catheter and after that we'll bladder scan her shortly thereafter. If need to we could think about straight cathing the patient. Other than this the patient did not have any other acute concerns or complaints Thank you very much, Yasir Fitzgerald
--- NOTE | 2016-10-11 18:15 | CP.PCM.PN ---
Subjective - Date & Time of Evaluation Date of Evaluation: 10/11/16 Time of Evaluation: 08:12 - Subjective Subjective: GENERAL SURGERY PROGRESS NOTE FOR DR. CHINO Patient seen and examined this morning. She states that she has some abdominal and rectal pain. She is tolerating her full liquid diet and denies nausea or vomiting. She had a BM today. Objective - Vital Signs/Intake and Output Vital Signs (last 24 hours): Temp Pulse Resp BP Pulse Ox 98.0 F 84 20 113/73 95 10/11/16 16:00 10/11/16 16:00 10/11/16 16:00 10/11/16 16:00 10/11/16 16:00 Intake and Output: 10/11/16 10/11/16 06:59 18:59 Intake Total 250 Output Total 1300 Balance -1050 - Medications Medications: Current Medications Allopurinol (Zyloprim) 100 mg PO DAILY [facility] Last Admin: 10/11/16 09:13 Dose: 100 mg Amlodipine Besylate (Norvasc) 5 mg PO DAILY [facility] Last Admin: 10/11/16 09:13 Dose: 5 mg Diphenhydramine HCl (Benadryl) 25 mg IVP Q6H PRN PRN Reason: Itching / Pruritus Last Admin: 10/11/16 01:14 Dose: 25 mg Docusate Sodium (Colace) 100 mg PO BID PRN PRN Reason: Constipation Last Admin: 10/11/16 17:25 Dose: 100 mg Enoxaparin Sodium (Lovenox) 40 mg SC DAILY [facility] Last Admin: 10/11/16 11:27 Dose: 40 mg Famotidine (Pepcid) 20 mg PO DAILY [facility] Last Admin: 10/11/16 09:13 Dose: 20 mg Hydrochlorothiazide (Microzide) 12.5 mg PO DAILY [facility] Last Admin: 10/11/16 09:13 Dose: 12.5 mg Moxifloxacin HCl (Avelox Iv 400mg/250ml Ns) 250 mls @ 167 mls/hr IVPB Q24H [facility] Last Admin: 10/11/16 09:30 Dose: 167 mls/hr Lidocaine HCl (Lidocaine Hydrochloride Jelly 2% 5 Ml) 0 ml TOP Q2H PRN PRN Reason: Pain, Mild (1-3) Losartan Potassium (Cozaar) 100 mg PO DAILY [facility] Last Admin: 10/11/16 09:13 Dose: 100 mg Morphine Sulfate (Morphine) 4 mg IVP Q4H PRN PRN Reason: Pain, severe (8-10) Morphine Sulfate (Morphine) 2 mg IVP Q4 PRN PRN Reason: Pain, moderate (4-7) Last Admin: 10/11/16 09:14 Dose: 2 mg Ondansetron HCl (Zofran Inj) 4 mg IVP Q4 PRN PRN Reason: Nausea/Vomiting Last Admin: 10/09/16 19:37 Dose: 4 mg Petrolatum (Desitin Original) 0 gm TOP BID [facility] Last Admin: 10/11/16 17:27 Dose: 1 applic - Labs Labs: 10/11/16 07:09 10/11/16 07:09 PT 10.9 SECONDS (9.7-12.2) 10/07/16 06:31 INR 1.0 10/07/16 06:31 APTT 30 SECONDS (21-34) 10/07/16 06:31 - Constitutional Appears: Non-toxic, No Acute Distress - Head Exam Head Exam: ATRAUMATIC, NORMAL INSPECTION - Eye Exam Eye Exam: EOMI, Normal appearance - Respiratory Exam Respiratory Exam: NORMAL BREATHING PATTERN. absent: Respiratory Distress - Cardiovascular Exam Cardiovascular Exam: +S1, +S2 - GI/Abdominal Exam GI & Abdominal Exam: Soft. absent: Distended, Firm, Guarding, Rigid, Tenderness , Rebound - Rectal Exam Additional comments: No bleeding seen, no evidence of rectal prolapse - Neurological Exam Neurological Exam: Alert, Awake, Oriented x3 - Psychiatric Exam Psychiatric exam: Normal Affect, Normal Mood - Skin Skin Exam: Dry, Normal Color, Warm Assessment and Plan - Assessment and Plan (Free Text) Assessment: 80yo F with rectal prolapse s/p perineal rectal prolapse stapling repair POD#2 - Afebrile, VSS - H&H WNL - BM today - Tolerating full liquids - Advanced diet to heart healthy diet - Encourage ambulation and IS use - If tolerates regular diet, clear for DC tomorrow from surgery standpoint - Discussed plan with Dr. Felicitas Rodriguez PGY-2
[2016-10-12 07:20] LABS: BASO # 0.1 K/uL (0.0-0.2); EOS # 0.8 K/uL (0.0-0.7); EOS % 7.2 % (0.0-4.0); HEMATOCRIT 41.8 % (34.0-47.0); LYMPH # 2.2 K/uL (1.0-4.3); LYMPH % 20.6 % (20.0-40.0); MEAN CELL VOLUME 88.6 fL (81.0-99.0); MEAN CORPUSCULAR HEMOGLOBIN 28.7 pg (27.0-31.0); MEAN CORPUSCULAR HGB CONC 32.4 g/dL (33.0-37.0); MEAN PLATELET VOLUME 6.9 fL (7.2-11.7); MONO # 0.9 K/uL (0.0-0.8); MONO % 8.3 % (0.0-10.0); RED CELL DISTRIBUTION WIDTH 14.5 % (11.5-14.5); WHITE BLOOD COUNT 10.6 K/uL (4.8-10.8)
[2016-10-12 07:26] LABS: CHLORIDE 93 mmol/L (98-107); POTASSIUM 3.9 mmol/L (3.6-5.2); SODIUM 133 mmol/L (132-148)
[2016-10-12 07:28] LABS: AST/SGOT 18 U/L (14-36); BILIRUBIN,TOTAL 0.5 mg/dL (0.2-1.3); CARBON DIOXIDE 28 mmol/L (22-30); GFR AFRICAN-AMERICAN > 60
[2016-10-12 07:29] LABS: ALB/GLOB RATIO 1.3 (1.0-2.1); ALKALINE PHOSPHATASE 69 U/L (38-126); ALT/SGPT 23 U/L (9-52); BLOOD UREA NITROGEN 13 mg/dL (7-17); CALCIUM 9.1 mg/dl (8.6-10.4); GLUCOSE,RANDOM 95 mg/dL (65-105); TOTAL PROTEIN 6.5 g/dL (6.3-8.3)
[2016-10-12 07:35] VITALS: TEMP 98.3
--- NOTE | 2016-10-12 10:00 | CP.PCM.DIS ---
<Ingrid Xie - Last Filed: 10/12/16 10:54> Provider - Provider Date of Admission: 10/06/16 16:47 Attending physician: Yasir Fitzgerald DO Primary care physician: Joss Consults: Cardio-[facility]- [place] Time Spent in preparation of Discharge (in minutes): 60 Diagnosis - Discharge Diagnosis (1) History of hypertension Status: Chronic (2) History of gout Status: Chronic Hospital Course - Lab Results Lab Results: Most Recent Lab Values WBC 10.6 K/uL (4.8-10.8) 10/12/16 07:10 RBC 4.72 Mil/uL (3.80-5.20) 10/12/16 07:10 Hgb 13.5 g/dL (11.0-16.0) 10/12/16 07:10 Hct 41.8 % (34.0-47.0) 10/12/16 07:10 MCV 88.6 fL (81.0-99.0) 10/12/16 07:10 MCH 28.7 pg (27.0-31.0) 10/12/16 07:10 MCHC 32.4 g/dL (33.0-37.0) L 10/12/16 07:10 RDW 14.5 % (11.5-14.5) 10/12/16 07:10 Plt Count 508 K/uL (130-400) H 10/12/16 07:10 MPV 6.9 fL (7.2-11.7) L 10/12/16 07:10 Neut % (Auto) 62.9 % (50.0-75.0) 10/12/16 07:10 Lymph % (Auto) 20.6 % (20.0-40.0) 10/12/16 07:10 [place] % (Auto) 8.3 % (0.0-10.0) 10/12/16 07:10 Eos % (Auto) 7.2 % (0.0-4.0) H 10/12/16 07:10 Baso % (Auto) 1.0 % (0.0-2.0) 10/12/16 07:10 Neut # 6.7 K/uL (1.8-7.0) 10/12/16 07:10 Lymph # 2.2 K/uL (1.0-4.3) 10/12/16 07:10 [place] # 0.9 K/uL (0.0-0.8) H 10/12/16 07:10 Eos # 0.8 K/uL (0.0-0.7) H 10/12/16 07:10 Baso # 0.1 K/uL (0.0-0.2) 10/12/16 07:10 PT 10.9 SECONDS (9.7-12.2) 10/07/16 06:31 INR 1.0 10/07/16 06:31 APTT 30 SECONDS (21-34) 10/07/16 06:31 Sodium 133 mmol/L (132-148) 10/12/16 07:10 Potassium 3.9 mmol/L (3.6-5.2) 10/12/16 07:10 Chloride 93 mmol/L (98-107) L 10/12/16 07:10 Carbon Dioxide 28 mmol/L (22-30) 10/12/16 07:10 Anion Gap 16 (10-20) 10/12/16 07:10 BUN 13 mg/dL (7-17) 10/12/16 07:10 Creatinine 0.7 MG/DL (0.7-1.2) 10/12/16 07:10 Est GFR ( Amer) > 60 10/12/16 07:10 Est GFR (Non-Af Amer) > 60 10/12/16 07:10 Random Glucose 95 mg/dL (65-105) 10/12/16 07:10 Calcium 9.1 mg/dl (8.6-10.4) 10/12/16 07:10 Total Bilirubin 0.5 mg/dL (0.2-1.3) 10/12/16 07:10 AST 18 U/L (14-36) 10/12/16 07:10 ALT 23 U/L (9-52) 10/12/16 07:10 Alkaline Phosphatase 69 U/L (38-126) 10/12/16 07:10 Troponin I 0.0270 ng/mL (0.00-0.120) 10/06/16 16:14 NT-Pro-B Natriuret Pep 260 pg/mL (0-900) 10/06/16 16:14 Total Protein 6.5 g/dL (6.3-8.3) 10/12/16 07:10 Albumin 3.6 g/dL (3.5-5.0) 10/12/16 07:10 Globulin 2.8 gm/dL (2.2-3.9) 10/12/16 07:10 Albumin/Globulin Ratio 1.3 (1.0-2.1) 10/12/16 07:10 Carcinoembryonic Ag 1.3 ng/mL (0-3.0) 10/07/16 06:31 CA 125 Antigen 14.6 U/mL (0-35) 10/07/16 06:31 Blood Type A POSITIVE 10/08/16 14:26 Antibody Screen Negative 10/08/16 14:26 - Hospital Course Hospital Course: On hospital admission This is a 80 yo F with PMH significant for HTN, gout, osteoporosis and arthritis that presented to the ED with a chief complaint of rectal prolapse. Pt states that this started about 1 month and has gotten progressively worse. She states that is is associated with pain. She also reports that it prolapses with a BM and will reduce spontaneously as she goes about her day. She is not aware of any exacerbating factors or what lead to the prolapse. Pt denies constipation, fevers, chills, chest pain, sob, nausea or vomiting. She also denies blood in her stool. Pt was seen by Dr Polk outpatient, who sent her in for surgical repair. On hospital course Patient admitted to hospital per Dr. Polk for pre-op evaluations. Pt seen/ evaluated by cardiology with clearance for surgical intervention. Patient seen/ evaluated by GI- taken for colonoscopy with biopsy of rectal tissues - findings positive for mild chronic inflammatory changes. Patient taken to OR on hospital day 3 for rectal prolapse repair. Post op, patient with some urinary retention- resolved over hospital course. Post op day #3, patient stable, pain minimal, ready for discharge to [facility] for rehabilitation and re-conditioning. On hospital discharge Patient cleared for discharge to short term rehab when bed available as per Dr. Elizondo and Dr. Polk. Patient is to follow up with her primary care physician, Dr. Barahona in 1 week after hospitalization. Please also follow up with Dr. Polk in 1 week after hospitalization. Please continue to take the Losartan, Hydrochlorothiazide, Amlodipine, and Allopurinol daily. You are to complete 2 more days of Avelox, which is an antibiotic. If you have recurrence of symptoms, please return to the hospital. Diagnoses Rectal prolapse s/p repair, Hx HTN, Hx Gout, urinary retention- resolved, possible pneumonia Medications Allopurinol (Zyloprim) 100 mg PO DAILY [facility] Amlodipine Besylate (Norvasc) 5 mg PO DAILY [facility] Hydrochlorothiazide (Microzide) 12.5 mg PO DAILY [facility] Losartan Potassium (Cozaar) 100 mg PO DAILY [facility] Moxifloxacin [Avelox Tab] 400 mg PO DAILY #2 tab This is a summary of hospital course, please see EMR for further details. - Date & Time of H&P Date of H&P: 10/06/16 Time of H&P: 17:57 Discharge Exam - Head Exam Head Exam: ATRAUMATIC, NORMAL INSPECTION, NORMOCEPHALIC - Eye Exam Eye Exam: EOMI, Normal appearance, PERRL Pupil Exam: NORMAL ACCOMODATION, PERRL - ENT Exam ENT Exam: Mucous Membranes Moist, Normal Exam - Neck Exam Neck exam: Full Rom, Normal Inspection - Respiratory Exam Respiratory Exam: Clear to PA & Lateral, NORMAL BREATHING PATTERN, UNREMARKABLE. absent: Rales, Rhonchi, Wheezes - Cardiovascular Exam Cardiovascular Exam: REGULAR RHYTHM, +S1, +S2 - GI/Abdominal Exam GI & Abdominal Exam: Normal Bowel Sounds, Soft, Unremarkable. absent: Tenderness - Extremities Exam Extremities exam: full ROM, normal inspection (excluding Left wrist, which is deformed (Chronic)) - Back Exam Back exam: absent: NORMAL INSPECTION (dorsal kyphosis), paraspinal tenderness, tenderness - Neurological Exam Neurological exam: Alert, CN II-XII Intact, Oriented x3 - Psychiatric Exam Psychiatric exam: Normal Affect, Normal Mood - Skin Skin Exam: Dry, Intact, Normal Color, Warm Discharge Plan - Discharge Medications Prescriptions: RX: Moxifloxacin [Avelox Tab] 400 mg PO DAILY #2 tab - Follow Up Plan Condition: STABLE Disposition: REHAB FACILITY/REHAB UNIT Instructions: Moxifloxacin (By mouth), Rectal Prolapse (DC) Additional Instructions: Patient cleared for discharge to short term rehab when bed available as per Dr. Elizondo and Dr. Polk. Patient is to follow up with her primary care physician, Dr. Barahona in 1 week after hospitalization. Please also follow up with Dr. Polk in 1 week after hospitalization. Please continue to take the Losartan, Hydrochlorothiazide, Amlodipine, and Allopurinol daily; patient to complete 2 more days of Avelox antibiotic. If you have recurrence of symptoms, please return to the hospital. Please see EMR for details on medications. Referrals: Yessica Ferris MD [Staff Provider] - Joni Polk Jr., MD [Staff Provider] - <Ani Elizondo V - Last Filed: 10/12/16 17:11> Provider - Provider Date of Admission: 10/06/16 16:47 Attending physician: Ani Elizondo, [facility] Course - Lab Results Lab Results: Most Recent Lab Values WBC 10.6 K/uL (4.8-10.8) 10/12/16 07:10 RBC 4.72 Mil/uL (3.80-5.20) 10/12/16 07:10 Hgb 13.5 g/dL (11.0-16.0) 10/12/16 07:10 Hct 41.8 % (34.0-47.0) 10/12/16 07:10 MCV 88.6 fL (81.0-99.0) 10/12/16 07:10 MCH 28.7 pg (27.0-31.0) 10/12/16 07:10 MCHC 32.4 g/dL (33.0-37.0) L 10/12/16 07:10 RDW 14.5 % (11.5-14.5) 10/12/16 07:10 Plt Count 508 K/uL (130-400) H 10/12/16 07:10 MPV 6.9 fL (7.2-11.7) L 10/12/16 07:10 Neut % (Auto) 62.9 % (50.0-75.0) 10/12/16 07:10 Lymph % (Auto) 20.6 % (20.0-40.0) 10/12/16 07:10 Valencia % (Auto) 8.3 % (0.0-10.0) 10/12/16 07:10 Eos % (Auto) 7.2 % (0.0-4.0) H 10/12/16 07:10 Baso % (Auto) 1.0 % (0.0-2.0) 10/12/16 07:10 Neut # 6.7 K/uL (1.8-7.0) 10/12/16 07:10 Lymph # 2.2 K/uL (1.0-4.3) 10/12/16 07:10 [place] # 0.9 K/uL (0.0-0.8) H 10/12/16 07:10 Eos # 0.8 K/uL (0.0-0.7) H 10/12/16 07:10 Baso # 0.1 K/uL (0.0-0.2) 10/12/16 07:10 PT 10.9 SECONDS (9.7-12.2) 10/07/16 06:31 INR 1.0 10/07/16 06:31 APTT 30 SECONDS (21-34) 10/07/16 06:31 Sodium 133 mmol/L (132-148) 10/12/16 07:10 Potassium 3.9 mmol/L (3.6-5.2) 10/12/16 07:10 Chloride 93 mmol/L (98-107) L 10/12/16 07:10 Carbon Dioxide 28 mmol/L (22-30) 10/12/16 07:10 Anion Gap 16 (10-20) 10/12/16 07:10 BUN 13 mg/dL (7-17) 10/12/16 07:10 Creatinine 0.7 MG/DL (0.7-1.2) 10/12/16 07:10 Est GFR ( Amer) > 60 10/12/16 07:10 Est GFR (Non-Af Amer) > 60 10/12/16 07:10 Random Glucose 95 mg/dL (65-105) 10/12/16 07:10 Calcium 9.1 mg/dl (8.6-10.4) 10/12/16 07:10 Total Bilirubin 0.5 mg/dL (0.2-1.3) 10/12/16 07:10 AST 18 U/L (14-36) 10/12/16 07:10 ALT 23 U/L (9-52) 10/12/16 07:10 Alkaline Phosphatase 69 U/L (38-126) 10/12/16 07:10 Troponin I 0.0270 ng/mL (0.00-0.120) 10/06/16 16:14 NT-Pro-B Natriuret Pep 260 pg/mL (0-900) 10/06/16 16:14 Total Protein 6.5 g/dL (6.3-8.3) 10/12/16 07:10 Albumin 3.6 g/dL (3.5-5.0) 10/12/16 07:10 Globulin 2.8 gm/dL (2.2-3.9) 10/12/16 07:10 Albumin/Globulin Ratio 1.3 (1.0-2.1) 10/12/16 07:10 Carcinoembryonic Ag 1.3 ng/mL (0-3.0) 10/07/16 06:31 CA 125 Antigen 14.6 U/mL (0-35) 10/07/16 06:31 Blood Type A POSITIVE 10/08/16 14:26 Antibody Screen Negative 10/08/16 14:26 Attending/Attestation - Attestation I have personally seen and examined this patient.: Yes I have fully participated in the care of the patient.: Yes I have reviewed all pertinent clinical information, including history, physical exam and plan: Yes Notes (Text): patient seen, examined and case discussed with day-time resident. patient seen this morning. patient denies acute complaints. Patient is having flatus, bowel movements, and reports she feels deconditioned and amenable to subacute rehab. Per surgery, patient is surgically cleared; to follow-up with Dr. Polk in 1- 2 weeks. Subacute re-eval ordered Patient is medically stable for subacute rehab when bed is available. Assessment/Plan Rectal prolapse * CT abd pelvis w/ po and IV contrast (10/06/16) : inflammatory changes, thickening of the wall of the rectum, focal colitis, proctitis. No additional/ more proximal abnormalities in the sigmoid or descending colon. There is no evidence of mechanical obstruction. prolapse is not appreciated on current study * Consult (Dr. Blanco) on board-->help appreciated * Consult (Dr. Polk) on board-->help appreciated * Consult: (Dr. Davis) on board-->help appreciated * EKG: NSR. Chest xray: negative * Colonoscopy 10/08/16: mild chronic inflammation and reactive changes; cancer markers; no abnormal values noted * 10/09/16 Operative note: perineal approach repair of rectal prolapse * Per surgery, patient is surgically cleared; to follow-up with Dr. Polk in 1-2 weeks. Allergic reaction * likely secondary to contrast for CT abdomen/pelvis * Rash located over anterior thighs, buttocks, and abdomen and has now resolved. * had received Benadryl; Solumedrol; and Pepcid; * Rash located over anterior thighs, buttocks, and abdomen Gout * Patient is not in acute flare * Allpurinol 100mg PO daily Hypertension * Norvasc 5mg PO daily * HCTZ 12.5mg PO daily * Cozaar 100 mg PO daily Pneumonia * Chest xray (10/10/16): mild venous congestion. upper lobe granulomatous changes. patchy right basilar airspace opacity * Avelox 400mg IV qdaily (active since 10/11/16) to complete on 10/16/16 PPX * Lovenox 40mg subq daily * Pepcid 20mg PO daily for GI ppx * Zofran 4mg IV Q6 HR PRN
[2016-10-12] MEDS: Enoxaparin 40 mg Syringe SC SCH (10:25)
[2016-10-12] MEDS: Zinc Oxide Topical 30 gm Tube TOP SCH (10:25)
[2016-10-12] MEDS: Moxifloxacin IV 400mg/250ml NS 250 ML IVPB SCH (10:32)
[2016-10-12 11:51] VITALS: BP 115/84; PULSE 104; O2SAT 93
--- NOTE | 2016-10-12 12:05 | CP.PCM.PN ---
Subjective - Date & Time of Evaluation Date of Evaluation: 10/12/16 Time of Evaluation: 12:05 - Subjective Subjective: Pt S&E. NAEO. Pt states she has mild pain whenever she coughs, but states there is no longer any prolapse. Pt has had non-bloody BM since surgery. Pt denies nausea, is tolerating diet and has been able to ambulate. Objective - Vital Signs/Intake and Output Vital Signs (last 24 hours): Temp Pulse Resp BP Pulse Ox 98.3 F 104 H 20 115/84 93 L 10/12/16 07:33 10/12/16 11:37 10/12/16 07:33 10/12/16 11:37 10/12/16 11:37 Intake and Output: 10/12/16 10/12/16 06:59 18:59 Intake Total 240 Balance 240 - Medications Medications: Current Medications Allopurinol (Zyloprim) 100 mg PO DAILY [facility] Last Admin: 10/12/16 10:24 Dose: 100 mg Amlodipine Besylate (Norvasc) 5 mg PO DAILY [facility] Last Admin: 10/12/16 10:24 Dose: 5 mg Docusate Sodium (Colace) 100 mg PO BID PRN PRN Reason: Constipation Last Admin: 10/11/16 17:25 Dose: 100 mg Enoxaparin Sodium (Lovenox) 40 mg SC DAILY [facility] Last Admin: 10/12/16 10:25 Dose: 40 mg Famotidine (Pepcid) 20 mg PO DAILY [facility] Last Admin: 10/12/16 10:24 Dose: 20 mg Hydrochlorothiazide (Microzide) 12.5 mg PO DAILY [facility] Last Admin: 10/12/16 10:25 Dose: 12.5 mg Moxifloxacin HCl (Avelox Iv 400mg/250ml Ns) 250 mls @ 167 mls/hr IVPB Q24H [facility] Last Admin: 10/12/16 10:32 Dose: 167 mls/hr Lidocaine HCl (Lidocaine Hydrochloride Jelly 2% 5 Ml) 0 ml TOP Q2H PRN PRN Reason: Pain, Mild (1-3) Losartan Potassium (Cozaar) 100 mg PO DAILY [facility] Last Admin: 10/12/16 10:24 Dose: 100 mg Morphine Sulfate (Morphine) 4 mg IVP Q4H PRN PRN Reason: Pain, severe (8-10) Morphine Sulfate (Morphine) 2 mg IVP Q4 PRN PRN Reason: Pain, moderate (4-7) Last Admin: 10/11/16 09:14 Dose: 2 mg Ondansetron HCl (Zofran Inj) 4 mg IVP Q4 PRN PRN Reason: Nausea/Vomiting Last Admin: 10/09/16 19:37 Dose: 4 mg Petrolatum (Desitin Original) 0 gm TOP BID [facility] Last Admin: 10/12/16 10:25 Dose: 1 applic - Labs Labs: 10/12/16 07:10 10/12/16 07:10 PT 10.9 SECONDS (9.7-12.2) 10/07/16 06:31 INR 1.0 10/07/16 06:31 APTT 30 SECONDS (21-34) 10/07/16 06:31 - Constitutional Appears: Non-toxic, No Acute Distress - Head Exam Head Exam: ATRAUMATIC, NORMOCEPHALIC - Eye Exam Eye Exam: EOMI. absent: Scleral icterus - Respiratory Exam Respiratory Exam: NORMAL BREATHING PATTERN. absent: Respiratory Distress - Cardiovascular Exam Cardiovascular Exam: +S1, +S2. absent: JVD - GI/Abdominal Exam GI & Abdominal Exam: Soft. absent: Firm, Guarding, Rigid - Rectal Exam Additional comments: no evidence of prolapse with valsalva or cough. No evidence of hemorrhoids or bleeding. JANA deferred. - Neurological Exam Neurological Exam: Alert, Awake, Oriented x3 - Psychiatric Exam Psychiatric exam: Normal Affect, Normal Mood - Skin Skin Exam: Dry, Warm Assessment and Plan - Assessment and Plan (Free Text) Assessment: Assessment: 80 y/o female w/ rectal prolapse s/p perineal rectal prolapse stapling repair POD3 Plan: -pt surgically cleared for DC -no meds per rectum -cont colace BID -encourage ambulation and IS use -pt instructed to make an appointment with Dr. Polk in 1 - 2 weeks AKWhite PGY1
--- NOTE | 2016-10-12 16:50 | CP.PCM.PN ---
<Darinel Edmonds - Last Filed: 10/12/16 16:47> Subjective - Date & Time of Evaluation Date of Evaluation: 10/12/16 Time of Evaluation: 16:47 - Subjective Subjective: Cardiology Progress Note Dr. Blanco Patient seen and examined at the bedside. No acute distress. No acute events overnight. Nursing staff reports no issues. Patient is seated comfortably in bedside chair. The patient denies fever, chills, changes in vision/hearing, headache, chest pain, palpitations, shortness of breath, abdominal pain, N/V/D/C , changes in bowel/bladder, and extremity paresthesias. Objective - Vital Signs/Intake and Output Vital Signs (last 24 hours): Temp Pulse Resp BP Pulse Ox 98.3 F 104 H 20 115/84 93 L 10/12/16 07:33 10/12/16 11:37 10/12/16 07:33 10/12/16 11:37 10/12/16 11:37 Intake and Output: 10/12/16 10/12/16 06:59 18:59 Intake Total 240 Balance 240 - Medications Medications: Current Medications Allopurinol (Zyloprim) 100 mg PO DAILY [facility] Last Admin: 10/12/16 10:24 Dose: 100 mg Amlodipine Besylate (Norvasc) 5 mg PO DAILY [facility] Last Admin: 10/12/16 10:24 Dose: 5 mg Docusate Sodium (Colace) 100 mg PO BID PRN PRN Reason: Constipation Last Admin: 10/11/16 17:25 Dose: 100 mg Enoxaparin Sodium (Lovenox) 40 mg SC DAILY [facility] Last Admin: 10/12/16 10:25 Dose: 40 mg Famotidine (Pepcid) 20 mg PO DAILY [facility] Last Admin: 10/12/16 10:24 Dose: 20 mg Hydrochlorothiazide (Microzide) 12.5 mg PO DAILY [facility] Last Admin: 10/12/16 10:25 Dose: 12.5 mg Moxifloxacin HCl (Avelox Iv 400mg/250ml Ns) 250 mls @ 167 mls/hr IVPB Q24H [facility] Last Admin: 10/12/16 10:32 Dose: 167 mls/hr Lidocaine HCl (Lidocaine Hydrochloride Jelly 2% 5 Ml) 0 ml TOP Q2H PRN PRN Reason: Pain, Mild (1-3) Losartan Potassium (Cozaar) 100 mg PO DAILY [facility] Last Admin: 10/12/16 10:24 Dose: 100 mg Morphine Sulfate (Morphine) 4 mg IVP Q4H PRN PRN Reason: Pain, severe (8-10) Morphine Sulfate (Morphine) 2 mg IVP Q4 PRN PRN Reason: Pain, moderate (4-7) Last Admin: 10/11/16 09:14 Dose: 2 mg Ondansetron HCl (Zofran Inj) 4 mg IVP Q6 [facility] Petrolatum (Desitin Original) 0 gm TOP BID [facility] Last Admin: 10/12/16 10:25 Dose: 1 applic - Labs Labs: 10/12/16 07:10 10/12/16 07:10 PT 10.9 SECONDS (9.7-12.2) 10/07/16 06:31 INR 1.0 10/07/16 06:31 APTT 30 SECONDS (21-34) 10/07/16 06:31 - Constitutional Appears: Well, No Acute Distress - Head Exam Head Exam: ATRAUMATIC, NORMAL INSPECTION, NORMOCEPHALIC - Eye Exam Eye Exam: EOMI, Normal appearance, PERRL - ENT Exam ENT Exam: Mucous Membranes Moist, Normal Exam - Neck Exam Neck Exam: Full ROM. absent: Lymphadenopathy - Respiratory Exam Respiratory Exam: Clear to Ausculation Bilateral, NORMAL BREATHING PATTERN. absent: Rales, Rhonchi, Wheezes, Respiratory Distress, Stridor - Cardiovascular Exam Cardiovascular Exam: REGULAR RHYTHM, +S1, +S2. absent: Murmur - GI/Abdominal Exam GI & Abdominal Exam: Soft, Tenderness, Normal Bowel Sounds - Extremities Exam Extremities Exam: Full ROM, Normal Capillary Refill, Normal Inspection. absent : Joint Swelling, Pedal Edema - Neurological Exam Neurological Exam: Alert, Awake, CN II-XII Intact, Oriented x3 - Skin Skin Exam: Dry, Intact, Normal Color, Warm Assessment and Plan - Assessment and Plan (Free Text) Assessment: 80 y/o female w/ rectal prolapse s/p perineal rectal prolapse stapling repair POD3. Plan: 1.) Cardiology Clearance - Patient is POD #3 s/p rectal prolapse surgery - patient tolerated the procedure well - patient without cardiac complaint at this time - PC medically optimized for DC by primary team for DC on Losartan, Hydrochlorothiazide, Amlodipine [place] PGY1 <Joanna Blanco - Last Filed: 11/16/16 11:11> Objective - Vital Signs/Intake and Output Vital Signs (last 24 hours): Temp Pulse Resp BP Pulse Ox 98.3 F 104 H 20 115/84 93 L 10/12/16 07:33 10/12/16 11:37 10/12/16 07:33 10/12/16 11:37 10/12/16 11:37 - Labs Labs: 10/12/16 07:10 10/12/16 07:10 PT 10.9 SECONDS (9.7-12.2) 10/07/16 06:31 INR 1.0 10/07/16 06:31 APTT 30 SECONDS (21-34) 10/07/16 06:31 Attending/Attestation - Attestation I have personally seen and examined this patient.: Yes I have fully participated in the care of the patient.: Yes I have reviewed all pertinent clinical information, including history, physical exam and plan: Yes Notes (Text): 11/16/16 11:11 continue arely bp med pain control as per surgery no complaints
== END 2016-10-12 16:05 | DRG 395 ==
LOC: C.ER 14:26 → C.9E 16:47 → C.3T 18:15
PROVIDERS: ADMIT Hospitalist; ATTEND Hospitalist
PROC: 0DBM8ZX Excision of Descending Colon, Via Natural or Artificial Opening Endoscopic, Diagnostic (ICD-10-PCS; principal; 2016-10-08 12:35)
DX: K62.3 Rectal prolapse (principal); K58.9 Irritable bowel syndrome, unspecified; K52.9 Noninfective gastroenteritis and colitis, unspecified; K64.8 Other hemorrhoids; K64.4 Residual hemorrhoidal skin tags; D47.3 Essential (hemorrhagic) thrombocythemia; I10 Essential (primary) hypertension; M19.90 Unspecified osteoarthritis, unspecified site; M1A.9XX0 Chronic gout, unspecified, without tophus (tophi); M81.0 Age-related osteoporosis without current pathological fracture

== ENCOUNTER 2016-12-07 09:16 | Emergency (ER) | payer MEDICARE ==
[2016-12-07 09:22] VITALS: O2SAT 96
[2016-12-07 10:29] LABS: BASO % 0.4 % (0.0-2.0); EOS # 0.4 K/uL (0.0-0.7); EOS % 3.9 % (0.0-4.0); HEMATOCRIT 43.3 % (34.0-47.0); LYMPH # 1.9 K/uL (1.0-4.3); LYMPH % 20.1 % (20.0-40.0); MEAN CELL VOLUME 89.2 fL (81.0-99.0); MEAN CORPUSCULAR HEMOGLOBIN 29.8 pg (27.0-31.0); MEAN CORPUSCULAR HGB CONC 33.4 g/dL (33.0-37.0); MEAN PLATELET VOLUME 7.1 fL (7.2-11.7); MONO # 0.8 K/uL (0.0-0.8); MONO % 8.3 % (0.0-10.0); RED CELL DISTRIBUTION WIDTH 16.6 % (11.5-14.5); WHITE BLOOD COUNT 9.3 K/uL (4.8-10.8)
[2016-12-07 10:39] LABS: CHLORIDE 98 mmol/L (98-107); POTASSIUM 3.7 mmol/L (3.6-5.2); SODIUM 135 mmol/L (132-148)
[2016-12-07 10:41] LABS: ALB/GLOB RATIO 1.5 (1.0-2.1); AST/SGOT 20 U/L (14-36); BILIRUBIN,TOTAL 0.4 mg/dL (0.2-1.3); BLOOD UREA NITROGEN 24 mg/dL (7-17); CARBON DIOXIDE 26 mmol/L (22-30); GFR AFRICAN-AMERICAN > 60; TOTAL PROTEIN 8.1 g/dL (6.3-8.3)
[2016-12-07 10:42] LABS: ALKALINE PHOSPHATASE 84 U/L (38-126); ALT/SGPT 26 U/L (9-52); CALCIUM 9.5 mg/dl (8.6-10.4); GLUCOSE,RANDOM 89 mg/dL (65-105)
--- NOTE | 2016-12-07 12:07 | C.PDOC ---
Time Seen by Provider: 12/07/16 09:30 Chief Complaint (Nursing): GI Problem Past Medical History Vital Signs: Last Vital Signs Temp 97.8 F 12/07/16 09:20 Pulse 86 12/07/16 09:20 Resp 15 12/07/16 09:20 BP 134/88 12/07/16 09:20 Pulse Ox 96 12/07/16 09:20 - Medical History PMH: Arthritis, Fractures, HTN - [facility] Procedures EXCISION OF DESCENDING COLON, ENDO, DIAGN (10/06/16) Family History: States: Unknown Family Hx - Social History Hx Alcohol Use: No Hx Substance Use: No - Immunization History Hx Tetanus Toxoid Vaccination: No Hx Influenza Vaccination: No Hx Pneumococcal Vaccination: No ED Course And Treatment - Laboratory Results Result Diagrams: 12/07/16 10:21 12/07/16 10:21 O2 Sat by Pulse Oximetry: 96 Disposition Counseled Patient/Family Regarding: Studies Performed, Diagnosis, Need For Followup - Disposition Referrals: Joni Chino Jr., MD [Staff Provider] - Disposition: HOME/ ROUTINE Disposition Time: 12:05 Condition: STABLE Additional Instructions: FOLLOW UP WITH DR CHINO TOMORROW SCHEDULED RETURN TO ER IF YOU HAVE WORSENING SYMPTOMS Instructions: Rectal Prolapse (ED) Print Language: TONGAN - POA Present On Arrival: None - Clinical Impression Clinical Impression: Rectal prolapse
--- NOTE | 2016-12-07 12:16 | C.PDOC ---
History Of Present Illness 81-year-old female, presents to the emergency department with complaints of rectal bleed w/ bowel movement and rectal prolapse when stands. Patient is s/p surgery at the end of 09/18. Patient is also complaining of a "mucusy" discharge from the area. Denies fevers, abdominal pain, chest pain, shortness of breath or any other associated symptoms. No other complaints at this time. Time Seen by Provider: 12/07/16 09:30 Chief Complaint (Nursing): GI Problem History Per: Patient History/Exam Limitations: no limitations Onset/Duration Of Symptoms: Days Past Medical History Reviewed: Historical Data, Nursing Documentation, Vital Signs Vital Signs: Last Vital Signs Temp 97.4 F L 12/07/16 12:25 Pulse 91 H 12/07/16 12:25 Resp 20 12/07/16 12:25 BP 160/90 H 12/07/16 12:25 Pulse Ox 96 12/07/16 12:25 - Medical History PMH: Arthritis, Fractures, HTN - [facility] Procedures EXCISION OF DESCENDING COLON, ENDO, DIAGN (10/06/16) Family History: States: No Known Family Hx - Social History Hx Alcohol Use: No Hx Substance Use: No - Immunization History Hx Tetanus Toxoid Vaccination: No Hx Influenza Vaccination: No Hx Pneumococcal Vaccination: No Review Of Systems Except As Marked, All Systems Reviewed And Found Negative. Constitutional: Negative for: Fever, Chills Gastrointestinal: Positive for: Hematochezia, Other (rectal prolapse). Negative for: Vomiting Neurological: Negative for: Weakness, Numbness, Headache, Dizziness Physical Exam - Physical Exam Appears: Non-toxic, No Acute Distress Skin: Warm, Dry, No Rash Eye(s): bilateral: Normal Inspection, PERRL, EOMI Oral Mucosa: Moist Lips: Normal Appearing Neck: Normal ROM Cardiovascular: Rhythm Regular Respiratory: Normal Breath Sounds, No Accessory Muscle Use Gastrointestinal/Abdominal: Soft, No Tenderness, No Guarding, No Rebound Rectal: Rectal Tone (Normal), No Hemorrhoids, No Mass, No Tenderness Extremity: Normal ROM Neurological/Psych: Oriented x3 ED Course And Treatment - Laboratory Results Result Diagrams: 12/07/16 10:21 12/07/16 10:21 O2 Sat by Pulse Oximetry: 96 Progress Note: Bloodwork and guaiac ordered and reviewed. Case discussed w/ Dr Chino, states to discharge patient and have her f/u with him tomorrow as scheduled. Patients labs are WNL and guaiac is negative, she appears well and in no acute distress. Patient will be discharged. Asked to return immediately for any new or worsening symptoms. All questions answered. Disposition - Disposition Referrals: Joni Chino Jr., MD [Staff Provider] - Disposition: HOME/ ROUTINE Condition: STABLE Additional Instructions: FOLLOW UP WITH DR CHINO TOMORROW SCHEDULED RETURN TO ER IF YOU HAVE WORSENING SYMPTOMS Instructions: Rectal Prolapse (ED) Print Language: CITIZEN OF [place] AND [place] - Clinical Impression Clinical Impression: Rectal prolapse - Scribe Statement The provider has reviewed the documentation as recorded by the Skyibjamey Smyth All medical record entries made by the Skyibe were at my direction and personally dictated by me. I have reviewed the chart and agree that the record accurately reflects my personal performance of the history, physical exam, medical decision making, and the department course for this patient. I have also personally directed, reviewed, and agree with the discharge instructions and disposition.
[2016-12-07 12:29] VITALS: BP 160/90; PULSE 91; RESP 20; TEMP 97.4
== END 2016-12-07 12:30 | disposition home or self-care (01) ==
LOC: C.ER 09:16
DX: K62.3 Rectal prolapse (principal); I10 Essential (primary) hypertension; M19.90 Unspecified osteoarthritis, unspecified site
CPT/HCPCS: 80053; 85025; 99285; G0328